=== PATIENT | female | born 1975 | race Caucasian/White ===

== ENCOUNTER 2018-04-24 09:05 | Outpatient (CLI) | payer MEDICAID, SELFPAY ==
[2018-04-24 10:49] LABS: Absolute Basophil Count 0.02 k/cumm (0.0-0.2); Absolute Eosinophil Count 0.06 k/cumm (0.0-0.7); Absolute Lymphocyte Count 1.36 k/cumm (1.2-3.4); Absolute Monocyte Count 0.25 k/cumm (0.11-0.7); Absolute Neutrophil Count 3.06 k/cumm (1.2-6.7); Basophils % 0.4; Eosinophils % 1.3; HCT 38.9 % (36.0-46.0); HGB 12.8 g/dL (12.0-15.5); Lymphocytes % 28.6; Mean Corp. HGB Concentration 32.9 g/dL (32.0-36.0); Mean Corpuscular Hemoglobin 33.4 pg (27.0-33.0); Mean Corpuscular Volume 101.6 fL (80-95); Mean Platelet Volume 9.8 fL (8.0-11.0); Monocytes % 5.3; Neutrophils % 64.4; Platelet Count 321 x1000/uL (130-400); RBC 3.83 m/cumm (4.00-5.20); RBC Distribution Width 13.1 % (11.7-14.6); White Blood Cell Count 4.75 k/cumm (4.4-10.8)
[2018-04-24 11:01] LABS: ALT 25 U/L (12-78); AST 23 U/L (15-37); Albumin 3.7 g/dL (3.4-5.0); Alkaline Phosphatase 106 U/L (46-116); Anion Gap 10.3 mmol/L (3-11); BUN 17 mg/dL (7-18); Bilirubin, Total 0.3 mg/dL (0.2-1.0); CO2 26.7 mmol/L (21.0-32.0); CREATININE 0.79 mg/dL (0.55-1.02); Chloride 103 mmol/L (98-107); Cholesterol 271 mg/dL (50-200); Glucose 80 mg/dL (70-100); HDL Cholesterol 56 mg/dL (40-60); LDL CHOLESTEROL 204 mg/dL (<100); Potassium 4.9 mmol/L (3.5-5.1); Sodium 140 mmol/L (136-145); Total Protein 7.3 g/dL (6.4-8.2); Triglyceride 52 mg/dL (30-150)
== END 2018-04-24 09:25 ==
PROVIDERS: PCP Nurse Practitioner Family; Visit Provider Nurse Practitioner Family
DX: E78.5 Hyperlipidemia, unspecified (principal)
CPT/HCPCS: 36415; 80053; 80061; 83721; 85025

== ENCOUNTER 2019-04-23 01:30 | Outpatient (CLI) | payer MEDICAID, SELFPAY ==
[2019-04-23 10:12] LABS: Hemoglobin A1C 5.3 % (4.5-6.2)
[2019-04-23 13:24] LABS: ALT 34 U/L (14-59); AST 20 U/L (15-37); Albumin 3.8 g/dL (3.4-5.0); Alkaline Phosphatase 96 U/L (46-116); Anion Gap 8.3 mmol/L (3-11); BUN 15 mg/dL (7-18); Bilirubin, Total 0.3 mg/dL (0.2-1.0); CO2 29.7 mmol/L (21.0-32.0); CREATININE 0.93 mg/dL (0.55-1.02); Calcium 9.1 mg/dL (8.5-10.1); Calculated LDL 182 mg/dL; Chloride 103 mmol/L (98-107); Cholesterol 245 mg/dL (50-200); Glucose 88 mg/dL (70-100); HDL Cholesterol 53 mg/dL (40-60); Potassium 5.2 mmol/L (3.5-5.1); Sodium 141 mmol/L (136-145); Total Protein 7.5 g/dL (6.4-8.2); Triglyceride 53 mg/dL (30-150)
== END 2019-04-23 01:50 ==
PROVIDERS: PCP Nurse Practitioner Family; Visit Provider Nurse Practitioner Family
DX: E78.5 Hyperlipidemia, unspecified (principal)
CPT/HCPCS: 36415; 80053; 80061; 83036

== ENCOUNTER 2020-04-21 17:36 | Outpatient (REF) | payer MEDICAID, SELFPAY ==
[2020-04-21 13:38] LABS: HCT 40.1 % (36.0-46.0); HGB 13.2 g/dL (11.2-15.7); MCH 32.9 pg (27.0-33.0); MCHC 32.9 % (32.0-36.0); MPV 10.2 fL (8.0-11.0); Platelet Count 311 10^3/uL (130-400); RBC 4.01 10^6/uL (3.93-5.22); RDW 12.5 % (11.7-14.6); RDW-SD 47.4 fL; WBC 5.64 10^3/uL (4.4-10.8)
[2020-04-21 14:20] LABS: ALT 27 U/L (14-59); AST 25 U/L (15-37); Albumin 3.6 g/dL (3.4-5.0); Alkaline Phosphatase 108 U/L (46-116); Anion Gap 4.7 mmol/L (3-11); BUN 11 mg/dL (7-18); Bilirubin, Total 0.4 mg/dL (0.2-1.0); CO2 29.3 mmol/L (21.0-32.0); CREATININE 0.89 mg/dL (0.55-1.02); Calcium 9.1 mg/dL (8.5-10.1); Calculated LDL 177 mg/dL (<100); Chloride 105 mmol/L (98-107); Cholesterol 240 mg/dL (<200); Folate 18.7 ng/mL (8.6-20.0); Glucose 100 mg/dL (74-106); HDL Cholesterol 47 mg/dL (40-60); Sodium 139 mmol/L (136-145); Total Protein 7.1 g/dL (6.4-8.2); Triglyceride 82 mg/dL (<150); Vitamin B12 196 pg/mL (193-986)
== END 2020-04-21 17:56 ==
LOC: LBN 17:36
PROVIDERS: PCP Nurse Practitioner Family; Visit Provider Nurse Practitioner Family
DX: E78.5 Hyperlipidemia, unspecified (principal); D75.89 Other specified diseases of blood and blood-forming organs
CPT/HCPCS: 80053; 80061; 85027; 82607; 82746

== ENCOUNTER 2020-05-24 00:59 | Outpatient (CLI) | payer MEDICAID, SELFPAY ==
--- NOTE | 2020-05-24 15:00 | DI.MAMMO_ITS ---
EXAM: MG MAMMO SCREENING CLINICAL HISTORY: screening,Z12.39 TECHNIQUE: Bilateral full field digital CC and MLO mammographic images were obtained with 3D tomosyn thesis and utilizing computer aided detection (CAD). COMPARISON: Available for comparison. FINDINGS: Masses/Architectural Distortion: None seen. Biopsy clips again seen in the left breast. Microcalcifications: No suspicious pleomorphic-type are seen. Skin Thickening/Nipple Retraction: None. IMPRESSION: 1. No significant interval change with no specific features of malignancy noted. 2. Unless there is more urgent need, screening mammography is recommended, as per [place] guidelines. BI-RADS Category 1 - Negative Breast Density - Category C - Heterogeneously dense The mammogram demonstrates the patient's breast tissue is dense. Dense breast tissue is very common a nd is not abnormal but dense breast tissue can make it harder to find cancer on a mammogram. Also, de nse breast tissue may increase their breast cancer risk. This information about the result of the [facility] mogram report was provided to the patient to raise their awareness. Use this report when you speak wi th the patient about their risks for breast cancer, which includes their family history. At that time , you may recommend for more screening tests (Ultrasound or MRI) as they might be useful based on the ir risk. A negative radiographic report should not delay biopsy if a dominant or clinically suspicious mass is present. Up to ten percent of cancers are not identified on mammography. A negative report may reinforce clinical impression. Adenosis and dense breasts may obscure an underlying neoplasm. False positive reports average 6 to 10%. Patient will receive a letter notifying them of these results.
== END 2020-05-24 01:19 ==
PROVIDERS: PCP Nurse Practitioner Family; Visit Provider Nurse Practitioner Family
DX: Z12.31 Encounter for screening mammogram for malignant neoplasm of breast (principal)
CPT/HCPCS: 77063; 77067

== ENCOUNTER 2021-06-01 02:26 | Outpatient (CLI) | payer MEDICAID, SELFPAY ==
[2021-06-01 09:31] LABS: Hemoglobin A1C 5.6 % (<5.7)
[2021-06-01 10:38] LABS: Albumin 3.5 g/dL (3.4-5.0); BUN 14 mg/dL (7-18); Bilirubin, Total 0.4 mg/dL (0.2-1.0); Glucose 79 mg/dL (74-106); Total Protein 7.2 g/dL (6.4-8.2)
[2021-06-01 10:39] LABS: ALT 33 U/L (14-59); AST 19 U/L (15-37); Alkaline Phosphatase 109 U/L (46-116); Chloride 104 mmol/L (98-107); Potassium 4.1 mmol/L (3.5-5.1); Sodium 141 mmol/L (136-145)
== END 2021-06-01 02:27 | disposition home or self-care (01) ==
LOC: LBO 02:26
PROVIDERS: PCP Nurse Practitioner Family; Visit Provider Nurse Practitioner Family
DX: Z79.899 Other long term (current) drug therapy (principal)
CPT/HCPCS: 36415; 80053; 83036

== ENCOUNTER 2021-06-08 19:07 | Outpatient (REF) | payer MEDICAID, SELFPAY ==
[2021-06-08 19:16] LABS: HCT 41.5 % (36.0-46.0); HGB 13.3 g/dL (11.2-15.7); MCH 32.3 pg (27.0-33.0); MCV 100.7 fL (80-95); MPV 9.9 fL (8.0-11.0); Platelet Count 360 10^3/uL (130-400); RBC 4.12 10^6/uL (3.93-5.22); RDW 12.8 % (11.7-14.6); RDW-SD 48.1 fL; WBC 7.42 10^3/uL (4.4-10.8)
[2021-06-08 20:09] LABS: Calculated LDL 150 mg/dL (<100); Cholesterol 216 mg/dL (<200); HDL Cholesterol 53 mg/dL (40-60); Triglyceride 66 mg/dL (<150); Vitamin B12 498 pg/mL (193-986)
== END 2021-06-08 19:08 | disposition home or self-care (01) ==
LOC: LBN 19:07
PROVIDERS: PCP Nurse Practitioner Family; Visit Provider Nurse Practitioner Family
DX: E78.5 Hyperlipidemia, unspecified (principal); D75.89 Other specified diseases of blood and blood-forming organs
CPT/HCPCS: 80061; 85027; 82607

== ENCOUNTER 2021-06-19 01:12 | Outpatient (CLI) | payer MEDICAID, SELFPAY ==
--- NOTE | 2021-06-19 06:45 | DI.MAMMO_ITS ---
Exam(s) MAMMO SCREENING EXAM: MAMMO SCREENING CLINICAL HISTORY: screening,z12.39. TECHNIQUE: Bilateral full field digital CC and MLO mammographic images were obtained with 3D tomosyn thesis and utilizing computer aided detection (CAD). COMPARISON: Prior baseline mammogram of May 2020. FINDINGS: The fibroglandular tissue pattern is again noted be moderately dense, this somewhat decreasing the se nsitivity of the mammogram for finding hidden underlying lesions. No new significant radiograph findings in the right breast. In the anterior aspect of the left breas t there are 2 separate biopsy marker clips again noted in the retroareolar region. No new significan t radiograph findings at this location or elsewhere in the breast. There is no significant architectural distortion nor skin thickening-retraction. IMPRESSION: Moderately dense fibroglandular tissue. Stable benign findings. No radiographic evidence of maligna ncy. BI-RADS Category 2 - Benign Findings Breast Density - Category C - Heterogeneously dense Breast density Category C or D implies that the patient has dense breast tissue. Dense breast tissue can make it harder to find cancer on a mammogram. Dense breast tissue is also associated with an incr eased risk of breast cancer. This information about the result of the mammogram report was provided to the patient to raise their awareness. Use this report when you speak with the patient about their risks for breast cancer, which includes their family history. At that time, you may recommend additional screening tests (Ultrasoun d or MRI) as these tests may add significant information. A negative radiographic report should not delay biopsy if a dominant or clinically suspicious mass is present. Up to ten percent of cancers are not identified on mammography. A negative report may reinforce clinical impression. Adenosis and dense breasts may obscure an underlying neoplasm. False positive reports average 6 to 10%. Patient will receive a letter notifying them of these results.
== END 2021-06-19 01:32 ==
PROVIDERS: PCP Nurse Practitioner Family; Visit Provider Nurse Practitioner Family
DX: Z12.31 Encounter for screening mammogram for malignant neoplasm of breast (principal); R92.8 Other abnormal and inconclusive findings on diagnostic imaging of breast
CPT/HCPCS: 77063; 77067

== ENCOUNTER 2022-06-11 11:31 | Outpatient (CLI) | payer MEDICAID, SELFPAY ==
--- NOTE | 2022-06-11 11:30 | RT.EKG_ITS ---
APPROVED REPORT Exam: Resting ECG Reason for Exam: tachycardia Patient Location: O HR:102 bpm ECG Measurements Heart Rate 102 AXIS DE 125 P 53 QRSd 81 QRS 35 QT 329 T 76 QTc 429 Conclusion Sinus tachycardia...rate> 99 Normal Electrocardiogram
== END 2022-06-11 11:32 | disposition home or self-care (01) ==
LOC: DI.CM 11:33
PROVIDERS: PCP Nurse Practitioner Family; Visit Provider Nurse Practitioner Family
DX: R00.0 Tachycardia, unspecified (principal)
CPT/HCPCS: 93010

== ENCOUNTER 2022-09-03 00:35 | Outpatient (CLI) | payer MEDICAID, SELFPAY ==
--- NOTE | 2022-09-03 08:15 | DI.MAMMO_ITS ---
Exam(s) MAMMO SCREENING EXAM: MAMMO SCREENING CLINICAL HISTORY: screening TECHNIQUE: Mammograms were interpreted according to the usual protocol including computer analysis w [employer] CAD system, tomosynthesis and C-view imaging. COMPARISON: 2019 and 2020 FINDINGS: The breasts are composed of heterogeneously dense fibroglandular densities, Breast Density category C . No suspicious masses or suspicious microcalcifications are seen. Biopsy marker clips again noted in the subareolar region of the left breast. No skin thickening or abnormal axillary lymph nodes are seen. There has been no significant change from prior exams. IMPRESSION: BI-RADS Category 1, Negative mammogram. Yearly screening mammography is recommended. Breast Density Category C, heterogeneously Dense. The mammogram demonstrates the patient's breast tissue is dense. Dense breast tissue is very common a nd is not abnormal but dense breast tissue can make it harder to find cancer on a mammogram. Also, de nse breast tissue may increase breast cancer risk. This information about the result of the mammogram report was provided to the patient to raise their awareness. Use this report when you speak with the patient about their risks for breast cancer, which includes their family history. At that time, you may recommend additional screening tests (Ultrasound or MRI) as they might be useful based on their r isk. A negative radiographic report should not delay biopsy if a dominant or clinically suspicious mass is present. Up to ten percent of cancers are not identified on mammography. A negative report may reinforce clinical impression. Adenosis and dense breasts may obscure an underlying neoplasm. False positive reports average 6 to 10%.
== END 2022-09-03 00:55 ==
LOC: DI 00:36
PROVIDERS: PCP Nurse Practitioner Family; Visit Provider Nurse Practitioner Family
DX: Z12.31 Encounter for screening mammogram for malignant neoplasm of breast (principal); R92.8 Other abnormal and inconclusive findings on diagnostic imaging of breast
CPT/HCPCS: 77063; 77067

== ENCOUNTER 2022-09-07 01:12 | Outpatient (CLI) | payer MEDICAID, SELFPAY ==
[2022-09-07 10:59] LABS: Abs Immature Grans 0.01 10^3/uL (0.0-0.06); Absolute Basophil Count 0.03 10^3/uL (0.0-0.2); Absolute Eosinophil Count 0.21 10^3/uL (0.0-0.7); Absolute Lymphocyte Count 2.11 10^3/uL (1.2-3.4); Absolute Monocyte Count 0.38 10^3/uL (0.1-0.8); Absolute Neutrophil Count 3.61 10^3/uL (1.2-6.7); Basophils % 0.5; Eosinophils % 3.3; HCT 38.4 % (36.0-46.0); HGB 12.7 g/dL (11.2-15.7); Immature Grans % 0.2; Lymphocytes % 33.2; MCH 32.1 pg (27.0-33.0); MCHC 33.1 % (32.0-36.0); MCV 97 fL (80-95); MPV 9.4 fL (8.0-11.0); Neutrophils % 56.8; Platelet Count 326 10^3/uL (130-400); RBC 3.96 10^6/uL (3.93-5.22); RDW 12.6 % (11.7-14.6); RDW-SD 45.1 fL; WBC 6.35 10^3/uL (4.4-10.8)
[2022-09-07 11:27] LABS: Hemoglobin A1C 5.5 % (<5.7)
[2022-09-07 11:36] LABS: ALT 45 U/L (14-59); AST 26 U/L (15-37); Albumin 3.9 g/dL (3.4-5.0); Alkaline Phosphatase 156 U/L (46-116); Anion Gap 7.4 mmol/L (3-11); BUN 12 mg/dL (7-18); Bilirubin, Total 0.3 mg/dL (0.2-1.0); CO2 30.6 mmol/L (21.0-32.0); CREATININE 0.9 mg/dL (0.55-1.02); Calcium 9.5 mg/dL (8.5-10.1); Calculated LDL 121 mg/dL (<100); Chloride 103 mmol/L (98-107); Cholesterol 197 mg/dL (<200); Estimated GFR 79.85 (mL/min/1.73m2); Glucose 87 mg/dL (74-106); HDL Cholesterol 64 mg/dL (40-60); Potassium 3.9 mmol/L (3.5-5.1); Sodium 141 mmol/L (136-145); Total Protein 7.6 g/dL (6.4-8.2); Triglyceride 60 mg/dL (<150)
== END 2022-09-07 01:13 | disposition home or self-care (01) ==
LOC: LBO 01:12
PROVIDERS: PCP Nurse Practitioner Family; Visit Provider Nurse Practitioner Family
DX: F31.9 Bipolar disorder, unspecified (principal); I10 Essential (primary) hypertension
CPT/HCPCS: 36415; 80053; 80061; 83036; 85025

== ENCOUNTER → 2023-09-05 03:32 | Outpatient (CLI) | payer MEDICAID, SELFPAY ==
--- NOTE | 2023-09-05 12:02 | DI.MAMMO_ITS ---
Exam(s) MAMMO SCREENING EXAM: MAMMO SCREENING CLINICAL HISTORY: screening,z12.39 TECHNIQUE: Mammograms were interpreted according to the usual protocol including computer analysis w [employer] CAD system, tomosynthesis and C-view imaging. COMPARISON: 2019 through 2022 FINDINGS: The breasts are composed of heterogeneously dense fibroglandular densities, Breast Density category C . No suspicious masses or suspicious microcalcifications are seen. Biopsy marker clips noted in subare olar region of left breast. No skin thickening or abnormal axillary lymph nodes are seen. There has been no significant change from prior exams. IMPRESSION: BI-RADS Category 1, Negative mammogram. Yearly screening mammography is recommended. Breast Density Category C, heterogeneously Dense. The mammogram demonstrates the patient's breast tissue is dense. Dense breast tissue is very common a nd is not abnormal but dense breast tissue can make it harder to find cancer on a mammogram. Also, de nse breast tissue may increase breast cancer risk. This information about the result of the mammogram report was provided to the patient to raise their awareness. Use this report when you speak with the patient about their risks for breast cancer, which includes their family history. At that time, you may recommend additional screening tests (Ultrasound or MRI) as they might be useful based on their r isk. A negative radiographic report should not delay biopsy if a dominant or clinically suspicious mass is present. Up to ten percent of cancers are not identified on mammography. A negative report may reinforce clinical impression. Adenosis and dense breasts may obscure an underlying neoplasm. False positive reports average 6 to 10%.
== END ==
PROVIDERS: PCP Nurse Practitioner Family; Visit Provider Nurse Practitioner Family
DX: Z12.31 Encounter for screening mammogram for malignant neoplasm of breast (principal)
CPT/HCPCS: 77063; 77067

== ENCOUNTER 2023-12-11 13:38 | Outpatient (CLI) | payer MEDICAID, SELFPAY ==
[2023-12-11 13:18] LABS: Abs Immature Grans 0.02 10^3/uL (0.0-0.06); Absolute Basophil Count 0.03 10^3/uL (0.0-0.2); Absolute Lymphocyte Count 1.55 10^3/uL (1.2-3.4); Absolute Neutrophil Count 3.97 10^3/uL (1.2-6.7); Basophils % 0.5 %; Eosinophils % 1.7 %; HCT 27.7 % (36.0-46.0); HGB 8.6 g/dL (11.2-15.7); Immature Grans % 0.3 %; MCH 28.3 pg (27.0-33.0); MCV 91 fL (80-95); MPV 9.9 fL (8.0-11.0); Neutrophils % 66.5 %; Platelet Count 361 10^3/uL (130-400); RBC 3.04 10^6/uL (3.93-5.22); RDW 14.7 % (11.7-14.6); RDW-SD 49.3 fL; WBC 5.97 10^3/uL (4.4-10.8)
[2023-12-11 13:57] LABS: FREE T4 0.96 ng/dL (0.76-1.46); TSH 0.76 uIU/Ml (0.36-3.74)
[2023-12-11 14:07] LABS: ALT 33 U/L (14-59); AST 15 U/L (15-37); Albumin 3.8 g/dL (3.4-5.0); Alkaline Phosphatase 152 U/L (46-116); Anion Gap 7.6 mmol/L (3-11); BUN 23 mg/dL (7-18); Bilirubin, Total 0.3 mg/dL (0.2-1.0); CO2 22.4 mmol/L (21.0-32.0); Calcium 8.9 mg/dL (8.5-10.1); Calculated LDL 116 mg/dL (<100); Chloride 106 mmol/L (98-107); Cholesterol 175 mg/dL (<200); Estimated GFR 69.93 (mL/min/1.73m2); Glucose 144 mg/dL (74-106); HDL Cholesterol 51 mg/dL (40-60); Sodium 136 mmol/L (136-145); Total Protein 7.5 g/dL (6.4-8.2); Triglyceride 42 mg/dL (<150)
[2023-12-11 14:26] LABS: Hemoglobin A1C 6.1 % (<5.7)
[2023-12-11 15:51] LABS: Vitamin D 25 Total 27.8 ng/mL (30-100)
[2023-12-11 22:13] LABS: Ferritin 8 ng/mL (8-252); Vitamin B12 894 pg/mL (193-986)
[2023-12-11 22:46] LABS: T3, Total 138 ng/dL (97-169)
[2023-12-11 22:53] LABS: Lab Add On Test DONE
[2023-12-12 09:35] LABS: Hepatitis C Ab w Rflx HCV PCR Negative (Negative)
== END 2023-12-11 13:39 | disposition home or self-care (01) ==
LOC: LBO 13:39
PROVIDERS: Nurse Practitioner Psychiatric/Mental Health; PCP Nurse Practitioner Family; Visit Provider Nurse Practitioner Family
DX: Z11.59 Encounter for screening for other viral diseases (principal); I10 Essential (primary) hypertension; E78.5 Hyperlipidemia, unspecified; D64.9 Anemia, unspecified
CPT/HCPCS: 36415; 80053; 80061; 82306; 86803; 82607; 82728; 82746; 83036; 84439; 84443; 84480; 85025

== ENCOUNTER → 2024-01-02 00:04 | Outpatient (CLI) | payer MEDICAID, SELFPAY ==
--- NOTE | 2024-01-02 11:00 | DI.US_ITS ---
APPROVED REPORT EXAM: Comprehensive 2D, Doppler, and color-flow Echocardiogram Patient Location: [facility]-Patient [employer] Supervisor: Mahogany Vincent RDCS (AE) Indications: Loud systolic murmur, HTN Other Information Study Quality: Adequate Conclusion Normal left ventricular wall thickness and chamber size. Ejection fraction is 65%. Wall motion is n ormal Normal right ventricular size and function Both atria are normal in size There is no structural or hemodynamically significant valvular disease Estimated right ventricular systolic pressure is 30 mmHg Wall motion Left Ventricle The left ventricle is normal size. The left ventricular systolic function is normal. The left ventric ular ejection fraction is within the normal range. There is normal left ventricular wall thickness. T here is normal LV segmental wall motion. There is no ventricular septal defect visualized. LVEF is 65 %. Right Ventricle The right ventricle is normal size. The right ventricular systolic function is normal. Atria The left atrium size is normal. The right atrium size is normal. The interatrial septum is intact wit h no evidence for an atrial septal defect. Aortic Valve The aortic valve is normal in structure. Aortic valve is trileaflet. There is no aortic valvular sten osis. No aortic regurgitation is present. Mitral Valve The mitral valve is normal in structure. No evidence of mitral valve stenosis. Trace mitral regurgita tion. Tricuspid Valve The tricuspid valve is normal in structure. There is no tricuspid valve stenosis. Trace tricuspid reg urgitation. The RVSP is 30.1_ mmHg. Pulmonic Valve The pulmonary valve is normal in structure. There is no pulmonic valvular stenosis. Trace pulmonic re gurgitation. Great Vessels The aortic root is normal in size. The ascending aorta is normal in size. Aortic arch is normal in ca liber. IVC is normal in size and collapses >50% with inspiration. Pericardium There is no pericardial effusion. 2D Dimensions IVSD d PLAX 1.00 cm F: 0.6-1.0 Ao Root d 2.50 cm F: 2.7 - 3.3 LVPW d PLAX 1.02 cm F: 0.6 - 1.0 Ao Asc Diam d 3.01 cm F: 2.3 - 3.1 LVID d PLAX 4.68 cm F: 3.8 - 5.2 LVDs 3.26 cm F: 2.2 - 3.5 LV EF Teichholz 57.7 % FS 30.33 % LV EDV (Teich) 101.5 mL LV ESV (Teich) 42.9 mL M-Mode TAPSE 2.35 cm (M/F) >1.7 Auto EF LV EDV A4C 95.3 mL LV EDV A2C 105.1 mL LV EDV BP 98.4 mL LV ESV A4C 40.7 mL LV ESV A2C 44.2 mL LV ESV BP 42.7 mL LVEF(%) A4C 57.3 % LVEF(%) A2C 58.0 % LVEF(%) BP 56.7 % LV SV A4C 54.6 ml LV SV A2C 60.9 ml LV SV BP 55.8 ml LV CO A4C 4.9 L/min LV CO A2C 5.4 L/min LV CO BP 5.1 L/min HR A4C 88.89 BPM HR A2C 88.24 BPM LV EDV Index (BP) LA Volume LA Length A4C 4.9 cm LA Length A2C 4.8 cm LA Area A4C s 15.59 cm2 LA Area A2C s 16.15 cm2 LA Vol A4C A-L 42.20 mL LA Vol A2C A-L 46.50 mL LA Vol Biplane A-L 44.9 mL LA Vol/BSA A4C A-L LA Vol/BSA A2C A-L LA Vol/BSA BP A-L 22.6 mL/m2 LA Vol A4C MOD 38.3 mL LA Vol A2C MOD 44.8 mL LA Vol BP MOD 41.7 mL RA Volume RA Area A4C 11.5 cm2 RA ESV A4C (A-L) 30.6mL RA Vol/BSA A4C A-L RA Length A4C 3.7 cm RA ESV A4C (MOD) 28.7mL LV Diastology MV E' medial 0.092 (>0.07 m/s) MV E Vmax 1.04 (0.4-1.3 m/s) MV E/E' MED 11.27 (<14) MV A Vmax 0.90 (0.4-1.3 m/s) MV E' lateral 0.139 (>0.1 m/s) E/A Ratio 1.2 MV E/E' LAT 7.50 (<14) MV E' Average 0.116 m/s MV E/E'(average) 9.01 Aortic Valve AoV Vmax 2.50 m/s LVOT Vmax 1.66 m/s AoV Peak Grad 24.9 mmHg LVOT Peak Grad 11.1 mmHg AoV Area (Vmax) 1.86 cm2 LVOT VTI 0.291 m AoV VTI 0.449 m LVOT Mean Grad 6.0 mmHg AoV Mean Baljit. 1.60 m/s LVOT SV 81.09 mL AoV Mean Grad 12.1 mmHg LVOT Diam s 1.85 cm AoV Area (VTI) 1.80 cm2 Velocity Ratio 0.66 Mitral Valve MV DT 171 (160-240 msec) MV Vmax TIPS 1.10 m/s MV Mean Grad 2.4 (<2mmHg) MV VTI 0.332 m Pulmonary Valve PV Vmax 1.68 (0.5-1.5 m/s) RVOT Vmax 1.22 m/s PV Peak Grad 11.3 mmHg RVOT Peak Gr. 6.0 mmHg PV Mean Baljit 1.16 m/s RVOT VTI 0.257 m PV Mean Grad 6.1 mmHg RVOT Mean Gr. 3.6 mmHg Tricuspid Valve RA Pressure 3.00 mmHg TR Vmax 2.60 m/s TV S' 0.15 m/s TR Peak Grad 27.0 mmHg RVSP (TR) 30.1 mmHg
== END ==
PROVIDERS: PCP Nurse Practitioner Family; Visit Provider Nurse Practitioner Family
DX: I10 Essential (primary) hypertension (principal); R01.1 Cardiac murmur, unspecified
CPT/HCPCS: 93306

== ENCOUNTER 2024-02-13 12:26 | Outpatient (CLI) | payer MEDICAID, SELFPAY ==
[2024-02-13 11:35] LABS: Abs Immature Grans 0.02 10^3/uL (0.0-0.06); Absolute Basophil Count 0.03 10^3/uL (0.0-0.2); Absolute Lymphocyte Count 1.53 10^3/uL (1.2-3.4); Absolute Monocyte Count 0.39 10^3/uL (0.1-0.8); Absolute Neutrophil Count 5.54 10^3/uL (1.2-6.7); Basophils % 0.4 %; Eosinophils % 2.6 %; HCT 35.3 % (36.0-46.0); HGB 11.3 g/dL (11.2-15.7); Immature Grans % 0.3 %; Lymphocytes % 19.8 %; MCH 29.6 pg (27.0-33.0); MCV 92 fL (80-95); MPV 9.5 fL (8.0-11.0); Monocytes % 5.1 %; Neutrophils % 71.8 %; Platelet Count 334 10^3/uL (130-400); RBC 3.82 10^6/uL (3.93-5.22); RDW 18.9 % (11.7-14.6); RDW-SD 63.7 fL; Reticulocyte 1.4 % (0.5-2.4); WBC 7.71 10^3/uL (4.4-10.8)
[2024-02-13 12:43] LABS: Iron 82 ug/dL (50-170); Total Iron Binding Capacity 442 ug/dL (250-450); Transferrin Sat 19 % (15-50)
[2024-02-13 13:07] LABS: ALT 45 U/L (14-59); AST 26 U/L (15-37); Albumin 4.1 g/dL (3.4-5.0); Alkaline Phosphatase 162 U/L (46-116); Anion Gap 10.5 mmol/L (3-11); BUN 15 mg/dL (7-18); CO2 25.5 mmol/L (21.0-32.0); Calcium 9.5 mg/dL (8.5-10.1); Chloride 104 mmol/L (98-107); Estimated GFR 69.93 (mL/min/1.73m2); Ferritin 17 ng/mL (8-252); Glucose 96 mg/dL (74-106); Magnesium 2.1 mg/dL (1.8-2.4); Potassium 4.3 mmol/L (3.5-5.1); Sodium 140 mmol/L (136-145); TSH (W/Ref FT4) 1.37 uIU/mL (0.36-3.74); Total Protein 7.8 g/dL (6.4-8.2); Vitamin B12 983 pg/mL (193-986)
[2024-02-13 13:21] LABS: C-Reactive Protein < 0.50 mg/dL (<or=0.5); GGT 15 U/L (5-55); LDH 214 U/L (81-234)
[2024-02-14 11:02] LABS: Haptoglobin 282 mg/dL (32-197)
== END 2024-02-13 12:27 | disposition home or self-care (01) ==
LOC: LBO 12:26
PROVIDERS: PCP Nurse Practitioner Family; Visit Provider Surgery
DX: I10 Essential (primary) hypertension (principal); E78.49 Other hyperlipidemia; E55.9 Vitamin D deficiency, unspecified; D50.9 Iron deficiency anemia, unspecified; F81.9 Developmental disorder of scholastic skills, unspecified; L20.89 Other atopic dermatitis; F31.60 Bipolar disorder, current episode mixed, unspecified; F43.10 Post-traumatic stress disorder, unspecified
CPT/HCPCS: 36415; 80053; 82607; 82728; 82746; 82977; 83010; 83540; 83550; 83615; 83735; 84443; 85025; 85045; 86140

== ENCOUNTER 2024-03-27 06:23 | Day surgery (SDC) | payer MEDICAID, SELFPAY ==
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
--- NOTE | 2024-03-26 20:18 | PDOC.DSDIS_ITS ---
Date of service: 03/27/24 Time of Service: 11:04 Discharge Plan Disposition Patient Disposition: Home Condition: Good Discharge Details Reason For Visit: egd and colo Attending Provider: Jaylene Bray Primary Care Provider: Vlevet Edwards Home Meds and New Rx's Prescriptions: New pantoprazole [Protonix] 40 mg tablet,delayed release (DR/EC) 40 mg PO DAILY Qty: 90 6RF Continued norethindrone (contraceptive) 0.35 mg tablet 0.35 mg PO DAILY Qty: 84 3RF Rx Instructions: Take 1 tablet continuously methylphenidate HCl [Concerta] 36 mg tablet extended release 24hr 36 mg PO DAILY metformin 500 mg tablet 500 mg PO DAILY aripiprazole 15 mg tablet 15 mg PO DAILY lorazepam 0.5 mg tablet 0.5 mg PO DAILY Patient Comments: Prescribed by psychiatric provider citalopram 10 mg tablet 10 mg PO DAILY Patient Comments: Prescribed by psychiatric provider valacyclovir 1 gram tablet 2,000 mg PO BID PRN (Reason: cold sores) Qty: 30 0RF Rx Instructions: Take 2 tablets twice a day for 1 day at first onset of symptoms triamcinolone acetonide 0.1 % cream 1 applic TP BID PRN (Reason: rash) Qty: 80 4RF Rx Instructions: Apply small amount to right leg rash twice a day till it resolves, 2-4wks cyanocobalamin (vitamin B-12) 1,000 mcg capsule 1,000 mcg PO DAILY Qty: 90 4RF rosuvastatin 20 mg tablet 20 mg PO DAILY Qty: 90 3RF Rx Instructions: Take 1 tablet daily amlodipine 10 mg tablet 10 mg PO DAILY Qty: 90 3RF losartan 100 mg tablet 100 mg PO DAILY Qty: 90 3RF cholecalciferol (vitamin D3) 50 mcg (2,000 unit) capsule 2,000 unit PO DAILY Qty: 90 3RF Rx Instructions: Take 1 daily after the 8 weeks of the 50,000unit dose ferrous sulfate 325 mg (65 mg iron) tablet 325 mg PO DAILY Qty: 90 3RF omega-3 acid ethyl esters [Lovaza] 1 gram capsule 4 cap PO DAILY Qty: 360 3RF Discontinued polyethylene glycol 3350 17 gram/dose powder 238 g PO ONCE Qty: 238 0RF Rx Instructions: take per colonoscopy instructions bisacodyl [Dulcolax (bisacodyl)] 5 mg tablet,delayed release (DR/EC) 5 mg PO ONCE Qty: 4 0RF Rx Instructions: take per colonoscopy instructions Discharge Instructions Instructions: Aspiration Pneumonia (DC) Additional Instructions: DSU Colonoscopy Post- Op Instructions Instructions for Everyone who is given Anesthesia: For your safety, please do the following for the next twenty-four (24) hours: *Do Not operate a motor vehicle (car, truck, motorcycle, etc.) *Do Not drink alcoholic beverages or use any recreational drugs for the first 24 hours or while taking pain medications. The medications in your body may have a reaction that can be dangerous. *Do Not make any important decisions or sign any important papers. Findings: large hiatal hernia and signs of chronic reflux Follow up: 1 months time f/u Dr. Bray in 1 months time April 27 @ 10:30am 1. No lifting over 20 pounds or strenuous activity for the first 24 hours after your procedure. After 24 hours there are no restrictions on your activity but you may feel fatigued for a few days. 2. After you arrive home you may have a light meal and return to your normal diet as you can tolerate it without feeling sick to your stomach. 3. You may have a bloated, gaseous feeling in your belly (abdomen) after a colonoscopy. Passing gas and belching will help. Walking or lying down on your left side with your knees flexed may relieve the discomfort. Call the office at [phone] (Office) or [phone] (Hospital) right away if you notice any of the following: a.Vomiting of blood or ?coffee ground stools?. b.Rectal bleeding 1Tbsp, blood clots or continuous bleeding. c.Severe belly (abdominal) pain. d.A hard distended belly (abdomen) and an inability to pass gas. 4. Please don?t expect to have a normal BM (bowel movement) for 2-3 days after your procedure. 5. If there are questions regarding the findings of your procedure, please contact your doctor 6. If you are unable to contact your doctor with a problem, contact the hospital at [phone]. 7. Continue all your regular medications unless directed otherwise. I understand the above instructions and have no questions. Signature of Patient or Adult Escort Name of Responsible Adult Escort Signature of Nurse Date/Time Stand Alone Forms: Anesthesia Discharge Inst., Colonoscopy Post Instructions, Press Ganey (DSU) Activity:: see above Diet:: see above Discharge Orders Discharge Orders: Discharge Order (Routine); Ordered 03/27/24 Ordered By: Jaylene Bray DS: Diagnosis Discharge Diagnosis (1) Bipolar disorder: Status: Chronic (2) PTSD (post-traumatic stress disorder): Status: Chronic (3) Hypertension: Status: Chronic (4) Hyperlipidemia: Status: Chronic (5) Vitamin D insufficiency: Status: Chronic (6) Oral contraceptive pill surveillance: Status: Chronic (7) Iron deficiency anemia: Status: Acute (8) Herpes labialis: Status: Chronic (9) Cognitive developmental delay: Status: Chronic (10) Hiatal hernia with GERD: Status: Acute (11) Esophagitis: Status: Acute
--- NOTE | 2024-03-26 20:48 | W.COLOREPORT ---
Date of service: 03/27/24 Time of Service: 08:40 Colonoscopy Report Date of procedure: 03/27/24 Pre-op diagnosis general: CRC screen/anemai Post-op diagnosis procedure note: same Surgeon: Jaylene Bray Anesthesia Type: General LMA/ETT (The patient had severe laryngeal spasm and needed to be intubated) Estimated blood loss (mL): 0 Pathology: none sent Complications: None Disposition: PACU Prep: Miralax/Dulcolax Procedure Start Time: 08:00 Procedure Description: After informed consent was obtained, explaining risks of the procedure, including but not limits to: bleeding, infections, complications of anesthesia, perforations (which may require antibiotics and /or surgery and stay in the hospital), and abdominal pain/cramping. The patient was taken to the procedure room and placed in a left decubitous position. Monitors were applied and a time out was done. The patients name, date of , procedure, allergies to medications and metal in their body was reviewed. a rectal exam was done. External exam was normal. Internal exam revealed a normal sphincter tone and no palpable masses. The previously lubricated Olympus scope was then introduced (see RN notes for scope number) and retrofelexed. No internal hemorrhoids were identified. The scope was then advanced to the cecum without difficulty. The TI and appendiceal orifice were identified. The scope was then slowly retracted over 8 minutes back into the rectum. Polyps: None. Diverticula: None. The mucosa is pink and healthy w/ a normal vascular pattern. The scope was removed, and the patient was woken up and taken back to Same day surgery in stable condition. The patient tolerated the procedure well and there were no immediate complications. Follow up: The patient should follow up in 10 years, unless they develop changes in bowel habits or other new gastrointestinal complaints. Fruitland Bowel Prep Fruitland Bowel Prep Right Colon: 3 Left Colon: 3 Transverse Colon: 3 Total Score: 9
--- NOTE | 2024-03-26 20:49 | W.PM.ENDDOP ---
Date of service: 03/27/24 Time of Service: 08:43 Endoscopy Report DATE OF PROCEDURE: 03/27/24 PRE-OP DIAGNOSIS: anemia/gerd POST-OP DIAGNOSIS: other (5 to 6 cm hiatal hernia and esophagitis) SURGEON: Jaylene Bray ANESTHESIA TYPE: General:No Airway (Patient did have a significant airway spasm during the procedure and we did have to convert to general/give paralytics, in order to break the spasm. Further scopes should be done as general) and General LMA/ETT ESTIMATED BLOOD LOSS: 2 PATHOLOGY: other COMPLICATIONS: None DISPOSITION: same day PREP: Miralax/Dulcolax PROCEDURE DESCRIPTION: Informed consent was obtained from the pt; explaining the benefits and Risks: bleeding, infections, perforations {which could require surgery or antibiotics and prolonged hospital stay}, or ostomy, and complications of anaesthesia, carito aspiration). The patient was take to the procedure room and placed in a supine position. Monitors were applied and a time out was done. The patients name, date of , procedure type, allergies to medications and metal in their body was reviewed. A bite block was placed and the patient was sedated. Once sedated and comfortable an Olympus gastroscope (see RN notes for scope #) was advanced through the oropharynx which was grossly normal, and passed into the esophagus. The proximal and mid-esophagus were normal. The distal esophagus does not show any: dilation/strictures/varices/erosions or ulcers/bleeding noted. There is moderate esophagitis noted. There is an nodule at the 9 o'clock position that is quite friable and bleeds readily. Multiple biopsies are taken of this. The scope was advanced into the stomach and through the pylorus into the proximal jejunum. A bx is taken for celiac Dx . The duodenum was noted to be normal. Biopsies were done of the duodenal bulb.. The scope was retracted back into the stomach and biopsies were taken of the antrum. There were no gastritis/gastropathy/ ulcers/masses noted. The scope was retroflexed. The cardia and fundus were noted to be normal. There 5 to 6 cm sliding-type a hiatal hernia noted. The scope was retracted back into the esophagus and biopsies were done of the GE junction (in all 4 quadrants) and distal esophagus (2cm above the GE junction) to rule out Yang's. All specimens are retrieved and no bleeding was noted. The Z line was irregular. The GE junction was at 35 cm. The scope was removed and the patient was woken up and taken back to [facility] in stable condition. *Further endoscopy should be done as general due to airway spasm
[2024-03-27] VITALS (19 sets, daily range): BP systolic 99–139; BP diastolic 49–79; PULSE 65–94; RESP 13–26; TEMP 36–36.7; O2SAT 93–99; BMI 35.8
--- OUTSIDE RECORDS SUMMARY | 2024-03-27 06:24 | XMS_ITS | Encounter Summary ---
Author Organization [facility] Address [address] [place] [address] Care Team Providers Care Metal Ceiling Builder Name Role Phone Iesha Malave MD Primary Care Provider [phone] Encounter Details Date Type Department Care Team (Late st Contact Info) Description 12/11/2023 Lab Requisition [facility] Pathology & Laboratory Medicine - [address] [id number] Outr Resulting Lab, Provider Social History Tobacco Use Types Packs/Day Years Used Date Smoking Tobacco: Never Assessed Interpersonal Safety Answer Date Record ed Physically Hurt Never 02/21/2020 Verbally Threaten Not on file 02/21/2020 Sex and Gender Information Value Date Recorded Sex Assigned at Not on file Gender Identity Not on file Sexual Orientation Not on file documented as of this encounter Plan of Treatment Not on file documented as of this encounter Procedures Procedure Name Priority Date/Time Associated Diagnosis Comments T3, TOTAL Routine 12/11/2023 11:55 EDT documented in this encounter Results * T3, TOTAL (12/11/2023 11:55 EDT) T3, Total 138 97 - 169 ng/dL 12/11/2023 22:41 EDT [facility] Blood VENOUS BLOOD / Unknown 12/11/2023 11:55 EDT 12/11/2023 21:50 EDT Provider Outr Resulting Lab CHEMISTRY & BLOOD GAS ORDERABLES [facility] [address] [place] [id number] documented in this encounter Visit Diagnoses Not on filedocumented in this encounter Care Teams Metal Ceiling Builder Relationship Specialty Start Date End Date Iesha Malave MD [address] [place], [place] [address] PCP - General 05/21/13 documented as of this encounter
--- OUTSIDE RECORDS SUMMARY | 2024-03-27 06:24 | XMS_ITS | Clinical Summary ---
Author Organization [facility] [place] [address] Care Team Providers Care Pot Feeder Name Role Phone Iesah Malave MD Primary Care Provider [phone] Allergies No known active allergies Medications Medication Sig Dispensed Refills Start Date End Date Status QUEtiapine (SEROQUEL) 100 mg tablet 07/01/2006 Active lithium 300 mg tablet 07/01/2006 Act skylar atorvastatin (LIPITOR) 40 mg tablet 40MG, PO, Once daily 07/01/2006 Active lamoTRIgine (LAMICTAL) 100 mg tablet 07/01/2006 Active aripiprazole (ABILIFY) 10 mg tablet 07/01/2006 Active LORazepam (ATIVAN) 0.5 mg tablet 07/01/2006 Active multivitamin capsule 07/01/2006 Acti ve Active Problems Problem Noted Date Diagnosed Date Eczematous dermatitis 11/20/2013 Social History Tobacco Use Types Packs/Day Years Used Date Smoking Tobacco: Never Assessed Sex and Gender Information Value Date Recorded Sex Assigned at Not on file Gender Identity Not on file Sexual Orientation Not on file Plan of Treatment Health Maintenance Due Date Last Done Comments CT Colonography 1976 Colonoscopy 1976 Colorectal Cancer Screening 1976 FIT DNA 1976 FIT 1976 Sigmoidoscopy (10 year) with FIT yearly 1976 Sigmoidoscopy 1976 HIV screen 1994 Hepatitis C Screening 1994 Hepatitis B vaccine (0-59 yrs) (1) 1995 Tdap adult 1995 Tetanus vaccine 1995 HPV test 2006 PAP Smear 2006 Breast Cancer Share Decision Needed 2016 Breast Cancer screening 2016 Covid-19 Vaccine ( - season) 2023 Influenza (Flu) vaccine (1 o f 1 - Influenza standard series) 03/22/2024 Care Teams Pot Feeder Relationship Specialty Start Date End Date Iesha Malave MD [address] [place] [address] PCP - General 06/13/10
--- OUTSIDE RECORDS SUMMARY | 2024-03-27 06:24 | XMS_ITS | Encounter Summary ---
[place] [address] Care Team Providers Care High Speed Warper Tender Name Role Phone Iesha Malave MD Primary Care Provider [phone] Encounter Details Date Type Department Care Team (Late st Contact Info) Description 02/13/2007 [place] [address] Jose Elias Godinez MD DIAGNOSTIC RADIOLOGY Social History Tobacco Use Types Packs/Day Years Used Date Smoking Tobacco: Never Assessed Sex and Gender Information Value Date Recorded Sex Assigned at Not on file Gender Identity Not on file Sexual Orientation Not on file documented as of this encounter Plan of Treatment Not on file documented as of this encounter Procedures Procedure Name Priority Date/Time Associated Diagnosis Comments SURGICAL PATHOLOGY REPORT Routine 02/13/2007 4:04 PM EDT documented in this encounter Results * Surgical Pathology Report (02/13/2007 4:04 PM EDT) Surgical Pathology Report [id number] ? Location: [facility] The signing pathologist has (i) examined the relevant preparation(s) for the specimen(s) and (ii) rendered or confirmed the diagnosis(es). . ?Pathology Surgical Pathology Final Report Clinical Information Specimen Submitted: A - Left breast: usbx, 12 ga VAD cores; superior margin B - Left breast: usbx, 12 ga VAD cores; inferior margin Clinical History: palpable lump left breast 1 cm from nipple hypoechoic on US Macrolobulated mass extends radically from nipple. cores taken from superior + inferior margins Clinical Diagnosis: Fibroadenoma Papilloma DCIS Report to: Jarrod Julian MD [facility] [address] [place] [address] Gross Description A - Labeled/Fixativ e: Left breast superior margin, formalin. Qty/Size/Weight : ?Four fragmented needle core biopsies, ranging from ?1.0 cm to 2.0 cm. ??Cylindrical cores of sánchez-white ?and yellow-white, fatty and fibrofatty tissue. Sections/Proces sing: ??(T1) B - Labeled/Fixativ e: Left breast inferior margin, formalin. Qty/Size/Weight : ?Three needle core biopsies, 1.7 x 0.3 x 0.2 cm. ?Cylindrical cores of sánchez-white and yellow-white, ?fatty and fibrofatty tissue. Sections/Proces sing: ??(T1) ??aje/EJR Microscopic Description Slides reviewed, microscopic description not recorded. Diagnosis A - Needle biopsies: ??Left breast (superior margin) Diagnosis: ?Fibroadenoma Microcalcificat ions: ??N/A B - Needle biopsies: ??Left breast (inferior margin) Diagnosis: ?Fibroadenoma Microcalcificat ions: ??N/A . Diagnosis CR-0 02/14/07 JOSE 02/14/07 Verified by: ? Nona Dumont MD ?Pathologist ?(Electronic Signature) The attending pathologist whose signature appears on this report has reviewed all diagnostic slides and has edited the gross and/or microscopic portion of the report in rendering the final pathologic diagnosis. JUAN PABLO SAUNDERS 02/13/2007 4:04 PM EDT Jose Elias Godinez MD PATHOLOGY/CYTOLOGY O RDERABLES JUAN PABLO SAUNDERS documented in this encounter Visit Diagnoses Not on filedocumented in this encounter Care Teams High Speed Warper Tender Relationship Specialty Start Date End Date Iesha Malave MD [address] [place] [address] PCP - General 06/13/10 documented as of this encounter
--- OUTSIDE RECORDS SUMMARY | 2024-03-27 06:24 | XMS_ITS | Encounter Summary ---
Author Organization [facility] Address [address] [place] [address] Care Team Providers Care Motorcycle Deliverer Name Role Phone Unknown, Provider Primary Care Provider [phone] Encounter Details Date Type Department Care Team (Latest Contact Info) Description 05/19/2013 14:04 EDT - 05/19/2013 23:59 EDT Hospital Encounter [address] [address] Unknown, Provider, Discharge Disposition: Home or Self Care Social History Tobacco Use Types Packs/Day Years Used Date Smoking Tobacco: Never Assessed Sex and Gender Information Value Date Recorded Sex Assigned at Not on file Gender Identity Not on file Sexual Orientation Not on file documented as of this encounter Discharge Disposition Disposition Code Departure Means Destination Home or Self [facility] documented in this encounter Plan of Treatment Not on file documented as of this encounter Visit Diagnoses Not on filedocumented in this encounter Care Teams Motorcycle Deliverer Relationship Specialty Start Date End Date Unknown, Provider, PCP - General 05/19/13 05/20/13 documented as of this encounter
--- OUTSIDE RECORDS SUMMARY | 2024-03-27 06:24 | XMS_ITS | Encounter Summary ---
[place] [address] Care Team Providers Care Bread Jockey Name Role Phone Iesha Malave MD Primary Care Provider Reason for Visit * Reason Comments Establish Care Encounter Details Date Type Department Care Team (Late st Contact Info) Description 11/20/2013 2:15 PM EDT Office Visit Dermatology at [address] [address] Felix Tierney MD [address] [facility] DERMATOLOGY [place], [place] [id number] Eczematous dermatitis (Primary Dx) Social History Tobacco Use Types Packs/Day Years Used Date Smoking Tobacco: Never Assessed Sex and Gender Information Value Date Recorded Sex Assigned at Not on file Gender Identity Not on file Sexual Orientation Not on file documented as of this encounter Progress Notes * Felix Tierney MD - 11/20/2013 2:50 PM EDT Problem: Dermatitis. Shana Turpin is a 38-year-old woman who is referred today by Dr. Malave for evaluation and treatment of recurrent dermatitis on the right anterior vitale. She had a bout of this last fall and was using triamcinolone cream b.i.d. to clear it. Unfortunately, over the last two or three weeks, it has flared back up again. She was using the 0.1% triamcinolone cream. Physical examination reveals a pleasant, 38-year-old woman who is blue eyed, red haired, and very fair skinned. She has patchy eczema on the left anterior vitale, and a large, contiguous, excoriated patch plaque involving the entire right anterior vitale of eczematous dermatitis. There is some slight impetiginization at the periphery. She has no involvement of the upper extremities, hands, or arms. Assessment and Plan: Eczematous dermatitis. a. I advised the patient to stop her phillips blossom-scented body wash and use just Dove or Ivory, fragrance free. b. I recommended we begin again triamcinolone 0.1% ointment, applying on a b.i.d. basis to clear, and then return to clinic within the month; 80 grams dispensed with zero refills. c. I would likely recommend CeraVe cream as a good emollient to use following clearance of her dermatitis. I did not want to give her too much information today. d. I reassured the patient that this is not indicative of an underlying medical disorder or illness. Discussed this is related to her fair skin. There is a family history of eczema in her father. e. Return to clinic in one month. COPY: Iesha Malave M.D. documented in this encounter Plan of Treatment Not on file documented as of this encounter Visit Diagnoses Diagnosis Eczematous dermatitis- Primary Contact dermatitis and other eczema, due to unspecified cause documented in this encounter Care Teams Bread Jockey Relationship Specialty Start Date End Date Iesha Malave MD [address] [place] [address] PCP - General 06/13/10 documented as of this encounter
--- OUTSIDE RECORDS SUMMARY | 2024-03-27 06:24 | XMS_ITS | Encounter Summary ---
Author Organization [facility] Address [address] [place] [address] Care Team Providers Care President & Ceo Name Role Phone Iesha Malave MD Primary Care Provider [phone] Encounter Details Date Type Department Care Team (Late st Contact Info) Description 12/12/2023 Lab Requisition [facility] Pathology & Laboratory Medicine - [address] [id number] Outr Resulting Lab, Provider Social History Tobacco [...] Procedure Name Priority Date/Time Associated Diagnosis Comments FOLATE Routine 12/11/2023 11:55 EDT documented in this encounter Results * FOLATE (12/11/2023 11:55 EDT) Folate 8.0 See Note ng/mL 12/12/2023 19:29 EDT [facility] Comment: Reference Ranges for Folate: Deficient: ?< 3.4 ng/mL Indeterminate: ??3.4 - 5.4 ng/mL Normal: ? > 5.4 ng/mL The results of this assay can be falsely elevated due to the consumption of Biotin. Blood VENOUS BLOOD / Unknown 12/11/2023 11:55 EDT 12/12/2023 18:16 EDT Provider Outr Resulting Lab CHEMISTRY & BLOOD GAS ORDERABLES [facility] [address] [place], [place] [phone] documented in this encounter Visit Diagnoses Not on filedocumented in this encounter Care Teams President & Ceo Relationship Specialty Start Date End Date Iesha Malave MD [address] [place] [address] PCP - General 05/21/13 documented as of this encounter
--- OUTSIDE RECORDS SUMMARY | 2024-03-27 06:24 | XMS_ITS | Encounter Summary ---
Author Organization [facility] Address [address] [place] [address] Care Team Providers Care Signal Tower Operator Name Role Phone Iesha Malave MD Primary Care Provider [phone] Encounter Details Date Type Department Care Team (Late st Contact Info) Description 12/11/2023 Lab Requisition [facility] Pathology & Laboratory Medicine - [address] [id number] Outr Resulting Lab, Provider Social History Tobacco [...] Procedure Name Priority Date/Time Associated Diagnosis Comments HEPATITIS C AB W REFLEX TO HCV RNA BY PCR Routine 12/11/2023 11:55 EDT documented in this encounter Results * HEPATITIS C AB W REFLEX TO HCV RNA BY PCR (12/11/2023 11:55 EDT) Hep C Antibody Negative Negative 12/12/2023 9:30 EDT [facility] Blood VENOUS BLOOD / Unknown 12/11/2023 11:55 EDT 12/11/2023 21:50 EDT Provider Outr Resulting Lab CHEMISTRY & BLOOD GAS ORDERABLES [facility] [address] [place], [place] [address] documented in this encounter Visit Diagnoses Not on filedocumented in this encounter Care Teams Signal Tower Operator Relationship Specialty Start Date End Date Iesha Malave MD [address] [place], [place] [address] PCP - General 05/21/13 documented as of this encounter
--- OUTSIDE RECORDS SUMMARY | 2024-03-27 06:24 | XMS_ITS | Referral Summary ---
Author Organization [facility] Address [address] [place] [address] Care Team Providers Care Vice Chancellor Name Role Phone Iesha Malave MD Primary Care Provider [phone] Encounters Date Type Department Care Team Description 02/13/2024 Lab Requisition [facility] Pathology & Laboratory Medicine - [facility] [address] [place] [address] Outr Resulting Lab, Provider from Last 3 Months Social History Tobacco Use Types Packs/Day Years Used Date Smoking Tobacco: Never Assessed Interpersonal Safety Answer Date Record ed Physically Hurt Never 02/21/2020 Verbally Threaten Not on file 02/21/2020 Sex and Gender Information Value Date Recorded Sex Assigned at Not on file Gender Identity Not on file Sexual Orientation Not on file Plan of Treatment Not on file Procedures Procedure Name Priority Date/Time Associated Diagnosis Comments HAPTOGLOBIN Routine 02/13/2024 11:20 EDT HEPATITIS C AB W REFLEX TO HCV RNA BY PCR Routine 12/11/2023 11:55 EDT from Last 3 Months or Most Recently Relevant to Health Maintenance Results * (ABNORMAL) HAPTOGLOBIN (02/13/2024 11:20 EDT) Haptoglobin 282(H) 32 - 197 mg/dL 02/14/2024 10:57 EDT [facility] Blood VENOUS BLOOD / Unknown 02/13/2024 11:20 EDT 02/13/2024 21:58 EDT Provider Outr Resulting Lab CHEMISTRY & BLOOD GAS ORDERABLES [facility] [address] [place], [place] [id number] * HEPATITIS C AB W REFLEX TO HCV RNA BY PCR (12/11/2023 11:55 EDT) Hep C Antibody Negative Negative 12/12/2023 9:30 EDT [facility] Blood VENOUS BLOOD / Unknown 12/11/2023 11:55 EDT 12/11/2023 21:50 EDT Provider Outr Resulting Lab CHEMISTRY & BLOOD GAS ORDERABLES Performing Organization Address City/[facility] Co de Phone Number [facility] [address] [place] [address] from Last 3 Months or Most Recently Relevant to Health Maintenance Care Teams Vice Chancellor Relationship Specialty Start Date End Date Iesha Malave MD [address] [place], [place] [id number] PCP - General 05/21/13
--- OUTSIDE RECORDS SUMMARY | 2024-03-27 06:24 | XMS_ITS | Clinical Summary ---
Author Organization Health system Address [address] [place] [address] Care Team Providers Care Hand Cementer Name Role Phone Iesha Malave MD Primary Care Provider [phone] Encounters Date Type Department Care Team Description 02/13/2024 Lab Requisition [facility] Pathology & Laboratory Medicine - [address] [address] Outr Resulting Lab, Provider from Last 3 [...] Health Maintenance Due Date Last Done Comments Hepatitis B Vaccine (1 of 3 - 19+ 3-dose series) 07/13 COVID-19 Vaccine ( season) 2024 Hepatitis C Screen Completed 12/11/2023 Procedures Procedure Name Priority Date/Time Associated Diagnosis Comments HAPTOGLOBIN Routine 02/13/2024 11:20 EDT HEPATITIS C AB W REFLEX TO HCV RNA BY PCR Routine 12/11/2023 11:55 EDT from Last 3 Months or Most Recently Relevant to Health Maintenance Results * (ABNORMAL) HAPTOGLOBIN (02/13/2024 11:20 EDT) Haptoglobin 282(H) 32 - 197 mg/dL 02/14/2024 10:57 EDT [facility] Blood VENOUS BLOOD / Unknown 02/13/2024 11:20 EDT 02/13/2024 21:58 EDT Provider Outr Resulting Lab CHEMISTRY & BLOOD GAS ORDERABLES [facility] [address] [place] [address] * HEPATITIS C AB W REFLEX TO HCV RNA BY PCR (12/11/2023 11:55 EDT) Hep C Antibody Negative Negative 12/12/2023 9:30 EDT [facility] Blood VENOUS BLOOD / Unknown 12/11/2023 11:55 EDT 12/11/2023 21:50 EDT Provider Outr Resulting Lab CHEMISTRY & BLOOD GAS ORDERABLES Performing Organization Address City/[facility]/ZIP Co de Phone Number [facility] [address] [place], [place] [address] from Last 3 Months or Most Recently Relevant to Health Maintenance Care Teams Hand Cementer Relationship Specialty Start Date End Date Iesha Malave MD [address] [place], [place] [address] PCP - General 05/21/13
--- OUTSIDE RECORDS SUMMARY | 2024-03-27 06:24 | XMS_ITS | Encounter Summary ---
Author Organization [facility] Address [address] [place] [address] Care Team Providers Care Meat Cutting Block Repairer Name Role Phone Iesha Malave MD Primary Care Provider [phone] Encounter Details Date Type Department Care Team (Late st Contact Info) Description 02/13/2024 Lab Requisition [facility] Pathology & Laboratory Medicine - [address] [id number] Outr Resulting Lab, Provider Social History Tobacco [...] Diagnosis Comments HAPTOGLOBIN Routine 02/13/2024 11:20 EDT documented in this encounter Results * (ABNORMAL) HAPTOGLOBIN (02/13/2024 11:20 EDT) Haptoglobin 282(H) 32 - 197 mg/dL 02/14/2024 10:57 EDT [facility] Blood VENOUS BLOOD / Unknown 02/13/2024 11:20 EDT 02/13/2024 21:58 EDT Provider Outr Resulting Lab CHEMISTRY & BLOOD GAS ORDERABLES [facility] [address] [place], [place] [phone] documented in this encounter Visit Diagnoses Not on filedocumented in this encounter Care Teams Meat Cutting Block Repairer Relationship Specialty Start Date End Date Iesha Malave MD [address] [place], [place] [phone] PCP - General 05/21/13 documented as of this encounter
--- OUTSIDE RECORDS SUMMARY | 2024-03-27 06:24 | XMS_ITS | Encounter Summary ---
Author Organization [facility] Address [address] [place] [address] Care Team Providers Care Wireless Telegrapher Name Role Phone Unknown, Provider Primary Care Provider [phone] Encounter Details Date Type Department Care Team (Late st Contact Info) Description 05/18/2013 Results Only [facility] Laboratory Services - [facility] ([facility] [address], [place] [address] Iesha Ogden MD [address] [place], [place] [id number] Social History Tobacco Use Types Packs/Day Years Used Date Smoking Tobacco: Never Assessed Sex and Gender Information Value Date Recorded Sex Assigned at Not on file Gender Identity Not on file Sexual Orientation Not on file documented as of this encounter Plan of Treatment Not on file documented as of this encounter Procedures Procedure Name Priority Date/Time Associated Diagnosis Comments SURGICAL PATHOLOGY Routine 05/18/2013 21 :57 EDT documented in this encounter Results * SURGICAL PATHOLOGY (05/18/2013 21:57 EDT) Pathology Report: SURGICAL PATHOLOGY REPORT Reports generated via electronic interface contain original data; however they are lacking the format of the original report. Caution should be taken when reading/interpreting unformatted reports. Name: ? LUIS M MOREL ? Accession #: ? [id number] ? : ? 1975 (Age: 37) ??F ? Collect Date: ? 05/18/2013 ? Location: ? [facility] ? Receive Date: ? 05/19/2013 ? Provider: IESHA OGDEN MD Copy to: ? Final Pathologic Diagnosis: SKIN OF LEG, RIGHT LOWER, PUNCH BIOPSY: - Subacute spongiotic dermatitis. ??See comment. Comment: The biopsy shows features of spongiotic (eczematous) dermatitis with epidermal hyperplasia and scale formation. ??The features could represent nummular eczema. A few eosinophils are present within the inflammatory infiltrate and, therefore, allergic contact dermatitis would also be included in the differential diagnosis. ??The superficial dermis is expanded by a vascular proliferation with mild erythrocyte extravasation and thickened collagen bundles. ??Early stasis dermatitis, therefore, is also a consideration. ??A drug-related eruption is less likely, given the aforementioned features. ??Features of connective tissue disease are not identified. ??(Dr. Collins)/glendy Microscopic Description: Sections consist of a punch biopsy of skin to the deep reticular dermis. ??There is orthohyperkeratosis and focal parakeratosis. ??The epidermis is irregularly acanthotic with tapered rete ridges. ??The epidermis shows a variable degree of spongiosis with proportionate lymphocytic exocytosis. ??The interface is intact. The dermal papillae are expanded by thick bundles of collagen and vessels. ??The vessels are thick walled and lined by plump endothelial cells. ??Areas of erythrocyte extravasation are present. ??There is a sparse superficial dermal inflammatory infiltrate that is composed primarily of lymphomononuclear cells, although a small number of eosinophils are present. ??Deeper sections show similar features. ??On sections prepared with iron stain, no appreciable hemosiderin is evident. ??(Dr. Collins)/will Document reviewed and electronically signed by: FREDY COLLINS MD Report ??Date: 05/22/2013 16:34 By the signature above, the attending physician certifies that he/she has personally conducted a gross and/or microscopic examination of the described specimens and rendered or confirmed the above diagnosis. Specimen(s) Received: Rt lower leg 3.0 mm punch bx Clinical History: Entire R vitale-red and excoriated, drug reaction, rule out connective tissue disease Gross Description: Received in formalin labelled with proper patient identification (initials N, B) and 3.0 mm punch bx RLL is a punch biopsy of white skin (0.3 cm in diameter and 0.2 cm in thickness). ??Submitted intact in 1. Anushka Rankin 05/20/2013 08:33 AM End of Report [facility] 05/18/2013 21:5 7 EDT 05/19/2013 21:57 EDT Iesha Ogden MD PATHOLOGY ORDERABLES Performing Organization Address City/State/[facility] Co de Phone Number [facility] [address] [place] [address] documented in this encounter Visit Diagnoses Not on filedocumented in this encounter Care Teams Wireless Telegrapher Relationship Specialty Start Date End Date Unknown, Provider, PCP - General 05/19/13 05/20/13 documented as of this encounter
--- NOTE | 2024-03-27 06:39 | W.ANESPRE ---
General Info Date of Service Date Performed: 03/27/24 Height: 5 ft 3 in Weight: 91.739 kg Body Mass Index (BMI): 35.8 Surgical Procedure: Operation Date: 03/27/24 07:35 Proposed Procedure Side Surgeon p Colonoscopy/Gastroscopy/PAP Smear Under Anesthesia Jaylene Bray DO Meds Allergies and Home Medications Allergies Allergy/AdvReac Type Severity Reaction Status Date / Time No Known Allergies Allergy Verified 03/27/24 06:45 Home Medication ?Medication ?Instructions ?Recorded citalopram 10 mg tablet 10 mg PO DAILY 04/28/19 lorazepam 0.5 mg tablet 0.5 mg PO DAILY 04/28/19 valacyclovir 1 gram tablet 2,000 mg (2 x 1 gram) PO BID PRN 04/28/19 cold sores #30 tabs triamcinolone acetonide 0.1 % 1 applic topical BID PRN rash #80 10/26/20 topical cream grams aripiprazole 15 mg tablet 15 mg PO DAILY 06/11/22 metformin 500 mg tablet 500 mg PO DAILY 06/11/22 methylphenidate HCl 36 mg 36 mg PO DAILY 06/12/23 tablet,extended release 24 hr (Concerta) norethindrone (contraceptive) 0.35 0.35 mg PO DAILY #84 tabs 06/12/23 mg tablet cyanocobalamin (vitamin B-12) 1,000 mcg PO DAILY #90 caps 09/02/23 1,000 mcg capsule rosuvastatin 20 mg tablet 20 mg PO DAILY #90 tabs 09/02/23 amlodipine 10 mg tablet 10 mg PO DAILY #90 tabs 09/11/23 losartan 100 mg tablet 100 mg PO DAILY #90 tabs 10/14/23 cholecalciferol (vitamin D3) 50 2,000 unit PO DAILY #90 caps 12/23/23 mcg (2,000 unit) capsule ferrous sulfate 325 mg (65 mg 325 mg PO DAILY #90 tabs 12/23/23 iron) tablet omega-3 acid ethyl esters 1 gram 4 cap PO DAILY #360 caps 12/23/23 capsule (Lovaza) Current Visit Medications: Current Medications Generic Name Dose Route Start Last Admin Trade Name Freq PRN Reason Stop Dose Admin Hyoscyamine Sulfate 0.125 mg 03/27/24 10:36 Hyoscyamine 0.125 Mg Sl/Oral/Chew SL 04/26/24 10:35 DIRECTED PRN Ringer's Solution 1,000 mls @ 80 mls/hr 03/27/24 06:00 IV 03/27/24 23:59 [facility] IV Miscellaneous Supplies 1 each 03/27/24 06:00 Iv Access IV 03/27/24 23:59 DIRECTED FERNANDO Ondansetron HCl 4 mg 03/27/24 10:36 Ondansetron 4 Mg/2 Ml Vial IVP 04/26/24 10:35 Q4H PRN PRN Nausea / Vomiting Sodium Chloride 0 ml 03/27/24 06:00 Normal Saline Flush 10 Ml Syr IV 03/27/24 23:59 PRN PRN Sodium Chloride 0 ml 03/27/24 06:00 Normal Saline 10 Ml Vial IJ 03/27/24 23:59 DIRECTED PRN Sterile Water 0 ml 03/27/24 06:00 Water,Injection,Sterile 10 Ml Vial IJ 03/27/24 23:59 DIRECTED PRN PFSH Active Problems Active Problems: Problem Status Onset Code Iron deficiency anemia Acute D50.9 Bipolar disorder Chronic F31.9 PTSD (post-traumatic stress disorder) Chronic F43.10 Cognitive developmental delay Chronic F81.9 Hypertension Chronic I10 Hyperlipidemia Chronic E78.5 Herpes labialis Chronic B00.1 Oral contraceptive pill surveillance Chronic Z30.41 Atopic dermatitis Chronic L20.9 Vitamin D insufficiency Chronic E55.9 Surgical History Surgical History No significant past surgical history Tobacco Smoking/Tobacco Use Status: Never Passive smoking exposure: Yes Alcohol Alcohol Intake: never Substance Use Substance use: Never Substance use type: does not use Vital Signs and Lab Results Vital Signs Most Recent Vital Signs in EMR: Temp Pulse Resp BP Pulse Ox 36.7 C 94 H 20 139/79 99 03/27/24 06:33 03/27/24 06:33 03/27/24 06:33 03/27/24 06:33 03/27/24 06:33 Lab Results Blood Type / Crossmatch: No Data to Display Complete Blood Count: No Data to Display Complete Metabolic Panel: No Data to Display Liver Function Panel: No Data to Display Coagulation Panel: No Data to Display Cardiac Panel: No Data to Display Arterial Blood Gas: No Data to Display Venous Blood Gas: No Data to Display Pancreas Panel: No Data to Display Thyroid Panel: No Data to Display Infectious Disease: No Data to Display Blood Cultures: No Data to Display Toxicology Panel: No Data to Display Panel: No Data to Display Imaging and Studies Imaging and Studies Study information below may be from another EMR and interpreted by another provider. Please see original notes in EMR for more complete details. EKG Summary: DATE/TIME OF SERVICE: 06/11/22 1237 HR:102 bpm Conclusion Sinus tachycardia...rate> 99 Normal Electrocardiogram Echocardiogram Summary: 02/2024: Conclusion Normal left ventricular wall thickness and chamber size. Ejection fraction is 65%. Wall motion is normal Normal right ventricular size and function Both atria are normal in size There is no structural or hemodynamically significant valvular disease Estimated right ventricular systolic pressure is 30 mmHg Anesthesia Assessment and Plan Anesthesia History Personal History: No History of Anesthesia Complications Family History: No Family History of Anesthesia Complications Exercise Tolerance Exercise Tolerance: Metabolic Equivalents>4 Pertinent Negatives Pertinent Negatives: No Symptoms of GERD and No Major Cardiovascular Symptoms or Complaints Cardiac & Pulmonary Exam Cardiac Exam: Normal S1/S2 Heart Sounds Pulmonary Exam: Clear Bilateral Breath Sounds Implantable Cardiac Device Does patient have a Pacemaker or an ICD?: No Airway Exam Known Difficult Airway: No Mallampati Class: 2 Mouth Opening: Normal (> 3cm) Thyromental Distance: Greater than 3 cm Neck Range of Motion: Full ROM Neck Circumference: Normal Teeth Condition: Normal Dentition ASA Classification ASA Score: ASA 2 Emergency Case?: No NPO Status NPO Status: NPO Clears >2 hours, Solids >8 hours Status Status: Negative HCG Anesthesia Plan Resuscitation Status: Full Code Anesthesia Technique: General Anesthesia Airway Planned: Natural Airway Monitors Used: Standard Monitors
[2024-03-27] MEDS: Lactated Ringers 1,000 ML 80 ML IV (06:56)
--- NOTE | 2024-03-27 07:50 | STOM_PTH ---
PATIENT: Shana Hardin LOC: [facility] U#:[id number] AGE/SX: 48/F ROOM: RE03/27/[address]: Jaylene Bray : 1975 BED: DIS: 03/27/2024 SPEC #: [id number] RECD: 03/27/24 13:03 STATUS: DERICK Scout #: [id number] KARRI: 03/27/24 07:[address]: Jaylene Bray DEPT: Surgical Specimen RECD BY: Chelsi Carr ENTERED: 03/27/24 13:09 SP TYPE: STOMACH OTHR DR: Velvet Edwards, AIRPORT SKILLED MAINTENANCE SUPERVISOR Tissues: 1 - BIOPSY BOWEL 2 - BIOPSY BOWEL 3 - STOMACH BIOPSY 4 - STOMACH BIOPSY 5 - ESOPHAGUS BIOPSY 6 - ESOPHAGUS BIOPSY 7 - ESOPHAGUS BIOPSY Procedures: GROSS AND MICRO LEVEL 4 Comments: [id number]
--- NOTE | 2024-03-27 08:15 | PAPFT_PTH ---
PATIENT: Shana Hardin LOC: [facility] U#:[id number] AGE/SX: 48/F ROOM: RE03/27/[address]: Jaylene Bray : 1975 BED: DIS: 03/27/2024 SPEC #: [id number] RECD: 03/27/24 13:31 STATUS: DERICK HERNANDEZ #: [id number] KARRI: 03/27/24 08:[address]: Jaylene Bray DEPT: [facility] Cytology RECD BY: Chelsi Carr ENTERED: 03/27/24 13:31 SP TYPE: PAPFT MIRIAM DR: Velvet Edwards, BEAUTY SALES CONSULTANT Tissues: 1 - CX/ENDOCX FOR PAP SMEARS Procedures: PAP THIN PREP/UVM Screening Comments: [id number] (UNSATISFACTORY FOR EVALUATION)
[2024-03-27] MEDS: Albuterol/Ipratropium 3 ML UPD VIAL UPD (09:13)
--- NOTE | 2024-03-27 10:08 | ANES.POST_ITS ---
Postoperative Evaluation Date, Time and Location Date Performed: 03/27/24 Time Performed: 09:50 Patient Location: Day Surgery Unit Vital Signs Most Recent Imported Vital Signs: Most Recent Vital Signs Temp Pulse Resp BP Pulse Ox 36.5 C 72 16 118/74 95 03/27/24 09:45 03/27/24 09:45 03/27/24 09:45 03/27/24 09:45 03/27/24 09:45 Pain Score Most Recent Pain Score: Most Recent Pain Score Pain Level 0 03/27/24 09:45 Assessment Mental Status: Awake (Alert & Oriented to Patient Baseline) Airway and Respiratory Function: Patent airway with normal (patient baseline) respiratory exam Cardiovascular Function: Hemodynamically Stable Hydration Status: Adequately Hydrated Nausea & Vomiting: No Nausea or Vomiting Pain: Pt. Denies Any Pain Peripheral Nerve Block: Patient did not receive a nerve block Postoperative Comments:: Discussed events of case and questions answered. Pt. doing well with no c omplaints. Discussed and will give aspiration education for home with advice to call surgeon or go to ED if symptoms develop.
== END 2024-03-27 11:20 | disposition home or self-care (01) ==
LOC: SUR 06:23
PROVIDERS: PCP Nurse Practitioner Family; Visit Provider Surgery
PROC: (CPT 45378; principal; 2024-03-27 07:30)
DX: D50.9 Iron deficiency anemia, unspecified; K21.9 Gastro-esophageal reflux disease without esophagitis; K44.9 Diaphragmatic hernia without obstruction or gangrene; K20.90 Esophagitis, unspecified without bleeding; Z12.11 Encounter for screening for malignant neoplasm of colon; K22.89 Other specified disease of esophagus; K31.A0 Gastric intestinal metaplasia, unspecified
CPT/HCPCS: 45378; 43239; 81025; 88142; 88305; J0330; J2001; J2250; J2405; J2704; J7620

== ENCOUNTER 2024-04-08 02:17 | Outpatient (CLI) | payer MEDICAID, SELFPAY ==
--- NOTE | 2024-04-08 07:00 | DI.RAD_ITS ---
Exam(s) RF BARIUM SWALLOW UGI EXAM: RF BARIUM SWALLOW UGI CLINICAL HISTORY: reflux,lg hiatal hernia /preop planning,k21.9,k44.9,k20.90 TECHNIQUE: 2D and real-time digital imaging was performed. CONTRAST MATERIAL: Oral barium Oral water soluble contrast was administered. Single and air contras t technique COMPARISON: No exams were available for comparison FINDINGS: ESOPHAGUS: There was no aspiration evident. No Zenker's diverticulum. Esophagus exhibits normal diameter and t here are no fixed lesions evident well as no evidence of Schatzki ring. However, as this exam progre ssed there was a sliding-type hiatal hernia demonstrated which, after air-contrast technique was show n to measure approximately 5 x 5 cm. There is no prominent GE reflux demonstrated during this exam. STOMACH: As above. No other focal findings in the stomach. No ulcer craters evident. Gastric fold pattern a ppears unremarkable. DUODENUM: Normal diameter. No ulcer craters. No duodenal diverticuli evident. Opacified proximal jejunal loops reveal no evidence of malrotation IMPRESSION: 1. Sliding-type hiatal hernia which measures approximately 5 x 5 cm largest measurement. No other fi ndings in the esophagus. No obvious GE reflux demonstrated during this exam. 2. No significant findings in the stomach and duodenum. RADIATION DOSE DELIVERED: marcel Goodwin= 41.4 mGy
[2024-04-08] MEDS: Simethicone/Sod Bicarb/Cit Ac, 4 gram PACKET 1 PACKET PO (10:45)
[2024-04-08] MEDS: Barium Sulfate 98% W/W 140 ML BTL PO (10:46)
[2024-04-08] MEDS: Barium Sulfate 60% W/V 355 ML BTL PO (10:47)
== END 2024-04-08 02:37 ==
LOC: DI 02:17
PROVIDERS: PCP Nurse Practitioner Family; Visit Provider Surgery
DX: K21.9 Gastro-esophageal reflux disease without esophagitis; K44.9 Diaphragmatic hernia without obstruction or gangrene
CPT/HCPCS: 74221; 74246; J3490

== ENCOUNTER 2024-07-31 00:56 | Outpatient (CLI) | payer MEDICAID, SELFPAY ==
--- OUTSIDE RECORDS SUMMARY | 2024-07-31 01:12 | XMS_ITS | Encounter Summary ---
[place] [address] Care Team Providers Care Food Cart Attendant Name Role Phone Iesha Malave MD Primary Care Provider [phone] Encounter Details Date Type Department Care Team (Late st Contact Info) Description 02/13/2007 [place] [address] Jose Elias Godinez MD DIAGNOSTIC RADIOLOGY Social [...] 4:04 PM EDT) Surgical Pathology Report [id number] ? Location: [facility] The signing pathologist has [...] Papilloma DCIS Report to: Jarrod Julian MD [facility] [address] [place] [address] Gross Description A - Labeled/Fixativ e: Left [...] rendering the final pathologic diagnosis. [facility] 02/13/2007 4:04 PM EDT Jose Elias Godinez MD PATHOLOGY/CYTOLOGY O RDERABLES Performing Organization Address City/State/[facility] Co de Phone Number [facility] documented in this encounter Visit Diagnoses Not on filedocumented in this encounter Care Teams Food Cart Attendant Relationship Specialty Start Date End Date Iesha Malave MD [address] [place] [address] PCP - General 06/13/10 04/05/24 documented as of this encounter
--- OUTSIDE RECORDS SUMMARY | 2024-07-31 01:12 | XMS_ITS | Encounter Summary ---
Author Organization [facility] [place] [address] Care Team Providers Care Structural Steel Trades Worker Name Role Phone IrajaurajoselitoSerenaVelvet APRN Primary Care Provider Reason for Visit * Diagnostic Test (Routine) - Closed Specialty Diagnoses / Procedures Referred By Contac t Referred To Contact Gastroenterology Diagnoses Hiatal hernia Heartburn HREM - heartburn Procedures High Resolution Esophageal Manometry Jaylene Bray, DO [address] [place] [address] [facility] [place] [address] [place] [address] Referral ID Status Reason Start Date Expiration Date V isits Requested Visits Authorized [id number] Closed Test Only 04/06/2024 04/06/2025 1 1 Encounter Details Date Type Department Care Team (Late st Contact Info) Description 06/04/2024 9:00 AM EST Office [place] [address] Hiatal hernia; Heartburn Social History Tobacco Use Types Packs/Day Years Used Date Smoking Tobacco: Never Assessed Sex and Gender Information Value Date Recorded Sex Assigned at Not on file Gender Identity Not on file Sexual Orientation Not on file documented as of this encounter Progress Notes * Chen Rubi, RN - 06/04/2024 9:00 AM EST A description of the esophageal manometry procedure was provided to the patient. All questions wereanswered and the patient verbalized understanding. The HREM catheter was placed via the right naris without difficulty. The esophageal manometry procedure was performed and the catheter was removed. Prior to placement of the impedance catheter, a description of the procedure was provided to patient. All questions were answered and the patient verbalized understanding. Written instructions were given to the patient as well. At 09:47 the impedance catheter was placed in the right naris without difficulty. It was secured at32 cm with tape. This study is being performed on acid suppressants, which was confirmed by the patient. The patientis taking Pantoprazole 40 mg daily. The patient tolerated the procedure well. * Jose Elias Torres MD - 06/04/2024 9:00 AM EST Images from the original note were not included. HIGH-RESOLUTION ESOPHAGEAL MANOMETRY PROCEDURE NOTE Patient: Shana Hardin Address: [address] [address] : 1975 Date of service: 06/04/2024 Indication: Heartburn Procedure: The patient arrived after an overnight fast. After verbal consent, a Rita motility catheter with 36 circumferential sensors on 1 cm spacing with impedance sensors was inserted transnasally after application of topical anesthesia to the nasal passage. The catheter was positioned so that at least 2distal sensors were in the stomach and 2 proximal sensors were located above the UES. A 3-5 minute a cclimation period was provided followed by 10 wet swallows of 5 cc of water while supine. Normal values while supine: Upper esophageal sphincter residual pressure: < 12 mmHg Upper esophageal sphincter relaxation duration: > 480 msec Distal contractile integral (DCI): > 450 and < 8,000 mmHg x cm x s Distal latency time: > 4.5 sec Integrated EGJ relaxation pressure (IRP): < 15 mmHg Normal EGJ resting pressure (respiratory mean): 15-34 mmHg Findings: - Upper Esophageal Sphincter: normal mean residual pressure and relaxation duration - Body: 0% of swallows failed. 0% of swallows had premature contractions with shortened distal latency time. The remaining 100% of swallows were peristaltic, includin% of swallows with hypercontractility, 20% of swallows with weak peristalsis, and 0% of swallows with large breaks (>5 cm) in the 20mmHg isocontour line. - Esophagogastric Junction: Midpoint located 38 cm from the nares, and proximal extent located at 36 cm. 4cm hiatal hernia present. Normal resting pressure (mean 31 mmHg) and normal IRP in 100% of swallows (median 4.7 mmHg). - Bolus transit: Liquid boluses cleared in 80% of swallows. - Multiple rapid swallows: Peristaltic reserve: reduced (ratio of post-multiple rapid swallow DCI to median DCI on 10 supine swallows is <1.0) Deglutitive inhibition: normal deglutitive inhibition (DCI <100 mmHg*s*cm) during the maneuver Integrated relaxation pressure: 0 mmHg (normal <12 mmHg) - Rapid drink challenge: Esophageal body contractility: normal deglutitive inhibition (DCI <100 mmHg*s*cm) during the maneuver Integrated relaxation pressure: 0 mmHg (normal <12 mmHg) Stemhole Borer swallow: Impressions based on Shepherd Classification v4.0: No evidence of a clinically significant disorder of peristalsis or EGJ outflow obstruction. *These findings assume that mechanical obstruction has been ruled out. Jose Elias Torres MD, [facility] Section of Gastroenterology and Hepatology [facility] [place] [address] V: [phone] F: [phone] CC/EC: Velvet Edwards, SLIP OPERATOR [address] [place] [address] * Jose Elias Torres MD - 06/04/2024 9:00 AM EST Catheter-based pH/impedance procedure report Patient: Shana Hardin Address: [address] [address] : 1975 Referring provider: Jaylene Bray Date of service: 06/05/2024 Indication: Heartburn Procedure: The catheter was placed transnasally after topical anesthetic (1cc of 4% aerosol lidocaine and 1cc of 2% viscous lidocaine), with the esophageal pH sensor located 32cm from the nares, 5 cm above the manometrically identified lower esophageal sphincter. A gastric pH sensor was located 10 cm distal to the top of the lower esophageal sphincter. The patient was instructed to keep a diary of symptoms,and returned the next day for removal of the probe. Testing performed ON pantoprazole 40 mg OD acid-suppressive therapy. Analysis Duration Total (HH:MM): 22:51 Analysis Duration Upright (HH:MM): 12:45 Analysis Duration Supine (HH:MM): 10:06 Acid exposure time (AET): Total distal esophageal acid exposure time: 6 % of testing period Upright distal esophageal acid exposure time: 4 % of testing period Supine distal esophageal acid exposure time: 8.5 % of testing period DeMeester Score: 30.3 (normal: <14.7) Normal values for acid exposure time (AET) defined as the % of time with a pH <4 Conclusive evidence for pathologic reflux: AET >7.0% Borderline or inconclusive evidence for pathologic reflux: AET 4.0% to 7.0% Evidence against pathologic reflux: AET <4.0% Reflux symptom association (RSA): Symptom Index (SI) Symptom (# of occurrences) Acid Weak acid Nonacid All reflux Symptom (1) 100% 0% 0% 100% Symptom Association Probability (SAP) Symptom (# of occurrences) Acid Weak acid Nonacid All reflux Symptom 81.5% 0% 0% 71.9% Interpretation of reflux symptom association (RSA) Positive association: Symptom Associated Probability [SAP] > 95% AND Symptom Index [SI] > 50% No convincing association: Symptom Associated Probability [SAP] > 95% OR Symptom Index [SI] >50% No evidence of association: Symptom Associated Probability [SAP] < 95% AND Symptom Index [SI] < 50% Number of reflux events by impedance: 140 total (normal < 80) and 67 acidic (normal < 80) and 73 weakly acidic (normal < 80) Impression based on the Neil classification: Conclusive evidence for breakthrough acid reflux tested ON pantoprazole 40 mg OD medication No convincing association between reflux and recorded symptoms of symptom. However, definitive conclusions on reflux-symptom association are limited by the low number of recorded symptom events during the testing period. Evidence of elevated reflux burden measured by impedance. References: 1) Modern diagnosis of GERD: the Neil Consensus. Gut. 2018 Jan; 67(7): 2096-2730. 2) Validation of the Neil classification for GORD diagnosis: acid exposure time assessed by prolonged wireless pH monitoring in healthy controls and patients with erosive oesophagitis. Gut. 2020. doi10.1136/tufyjr-[id number]. Jose Elias Torres MD, [facility] Section of Gastroenterology and Hepatology [facility] [place] [address] V: [phone] F: [phone] CC/EC: Velvet Edwards APRN [address] [place] [address] documented in this encounter Plan of Treatment Not on file documented as of this encounter Visit Diagnoses Diagnosis Hiatal hernia Diaphragmatic hernia without mention of obstruction or gangrene Heartburn documented in this encounter Care Teams Structural Steel Trades Worker Relationship Specialty Start Date End Date Velvet Edwards APRN [address] [place] [address] PCP - General Family Medicine 04/06/24 documented as of this encounter
--- OUTSIDE RECORDS SUMMARY | 2024-07-31 01:12 | XMS_ITS | Encounter Summary ---
Author Organization [facility] [place] [address] Care Team Providers Care Clinical Manager Home Care Name Role Phone Velvet Edwards APRN Primary Care Provider Encounter Details Date Type Department Care Team (Late st Contact Info) Description 04/08/2024 Ancillary Procedure Radiology Library at [facility] [place] [address] Velvet Edwards APRN [address] [place], [place] [id number] Social History Tobacco Use Types Packs/Day Years Used Date Smoking Tobacco: Never Assessed Sex and Gender Information Value Date Recorded Sex Assigned at Not on file Gender Identity Not on file Sexual Orientation Not on file documented as of this encounter Plan of Treatment Not on file documented as of this encounter Procedures Procedure Name Priority Date/Time Associated Diagnosis Comments FILM LIBRARY STORAGE ONLY DX GI STUDY Routine 04/08/2024 12:00 AM EDT documented in this encounter Results * Film Library- Storage Only DX GI Study (04/08/2024 12:00 AM EDT) Narrative [facility] - 07/08/2024 2:18 PM EST This exam is auto-finalizing. It's purpose is for storage only. Velvet Edwards APRN IMG FILM LIBRARY OR DERABLES [place], [place] documented in this encounter Visit Diagnoses Not on filedocumented in this encounter Care Teams Clinical Manager Home Care Relationship Specialty Start Date End Date Velvet Edwards APRN [address] [place] [address] PCP - General Family Medicine 04/06/24 documented as of this encounter
--- OUTSIDE RECORDS SUMMARY | 2024-07-31 01:12 | XMS_ITS | Encounter Summary ---
Author Organization [facility] [place] [address] Care Team Providers Care Manager Psychiatry Name Role Phone Velvet Edwards APRN Primary Care Provider Encounter Details Date Type Department Care Team (Latest Contact Info) Description 06/04/2024 Travel Social History Tobacco Use Types Packs/Day Years Used Date Smoking Tobacco: Never Assessed Sex and Gender Information Value Date Recorded Sex Assigned at Not on file Gender Identity Not on file Sexual Orientation Not on file documented as of this encounter Plan of Treatment Not on file documented as of this encounter Visit Diagnoses Not on filedocumented in this encounter Care Teams Manager Psychiatry Relationship Specialty Start Date End Date Velvet Edwards APRN [address] [place], [place] [address] PCP - General Family Medicine 04/06/24 documented as of this encounter
--- OUTSIDE RECORDS SUMMARY | 2024-07-31 01:12 | XMS_ITS | Encounter Summary ---
Author Organization [facility] Address [address] [place] [address] Care Team Providers Care Riveting Machine Operator Tape Control Name Role Phone Iesha Malave MD Primary Care Provider [phone] Encounter Details Date Type Department Care Team (Late st Contact Info) Description 12/11/2023 Lab Requisition [facility] Pathology & Laboratory Medicine - [address] [id number] Outr Resulting Lab, Provider Social History Tobacco Use Types Packs/Day Years Used Date Smoking Tobacco: Never Assessed Interpersonal Safety Answer Date Record ed Physically Hurt Never 02/21/2020 Verbally Threaten Not on file 02/21/2020 Comments Unknown Sex and Gender Information Value Date Recorded Sex Assigned at Not on file Legal Sex Female 16:14 EDT Gender Identity Not on file Sexual Orientation Not on file documented as of this encounter Plan of Treatment Not on file documented as of this encounter Procedures Procedure Name Priority Date/Time Associated Diagnosis Comments T3, TOTAL Routine 12/11/2023 11:55 EDT documented in this encounter Results * T3, TOTAL (12/11/2023 11:55 EDT) T3, Total 138 97 - 169 ng/dL 12/11/2023 22:41 EDT [facility] Blood VENOUS BLOOD / Unknown 12/11/2023 11:55 EDT 12/11/2023 21:50 EDT us Provider Outr Resulting Lab CHEMISTRY & BLOOD GA S ORDERABLES Final Result [facility] [address] [place] [address] documented in this encounter Visit Diagnoses Not on filedocumented in this encounter Care Teams Riveting Machine Operator Tape Control Relationship Specialty Start Date End Date Iesha Malave MD [address] [place], [place] [id number] PCP - General 05/21/13 documented as of this encounter
--- OUTSIDE RECORDS SUMMARY | 2024-07-31 01:12 | XMS_ITS | Encounter Summary ---
[place] [address] Care Team Providers Care Manager Asset Name Role Phone Grace Velvet TALAVERA Primary Care Provider Reason for Referral * Diagnostic Test (Routine) - Closed Specialty Diagnoses / Procedures Referred By Contac t Referred To Contact Gastroenterology Diagnoses Hiatal hernia Heartburn pH impedance ON PPI - heartburn Procedures pH Impedance - [place] [address] [place] [address] [address] [place] [address] [address] Referral ID Status Reason Start Date Expiration Date V isits Requested Visits Authorized [id number] Closed Test Only 04/06/2024 04/06/2025 1 1 * Diagnostic Test (Routine) - Closed Specialty Diagnoses / Procedures Referred By Contac t Referred To Contact Gastroenterology Diagnoses Hiatal hernia Heartburn HREM - heartburn Procedures High Resolution Esophageal Manometry Jaylene Bray DO [address] [place] [address] [facility] [address] [place] [address] Referral ID Status Reason Start Date Expiration Date V isits Requested Visits Authorized [id number] Closed Test Only 04/06/2024 04/06/2025 1 1 Encounter Details Date Type Department Care Team (Late st Contact Info) Description 04/06/2024 Transcribe Orders eDH Incoming Referrals [phone] Jaylene Bray DO [address] [place], [place] [address] Hiatal hernia; Heartburn Social History Tobacco Use Types Packs/Day Years Used Date Smoking Tobacco: Never Assessed Sex and Gender Information Value Date Recorded Sex Assigned at Not on file Gender Identity Not on file Sexual Orientation Not on file documented as of this encounter Plan of Treatment Scheduled Orders Name Type Priority Associated Diagnoses Orde r Schedule High Resolution Esophageal Manometry GI Routine Hiatal hernia Heartburn Expected: 04/06/2024, Expires: 10/04/2025 pH Impedance - 24 Hour GI Routine Hiatal hernia Heartburn Expected: 04/06/2024 (Approximate), Expires: 10/04/2025 documented as of this encounter Visit Diagnoses Diagnosis Hiatal hernia Diaphragmatic hernia without mention of obstruction or gangrene Heartburn documented in this encounter Care Teams Manager Asset Relationship Specialty Start Date End Date Velvet Edwards APRN [address] [place] [address] PCP - General Family Medicine 04/06/24 documented as of this encounter
--- OUTSIDE RECORDS SUMMARY | 2024-07-31 01:12 | XMS_ITS | Encounter Summary ---
Author Organization [facility] Address [address] [place] [address] Care Team Providers Care Domestic Laundry Worker Name Role Phone Iesha Malave MD Primary Care Provider [phone] Encounter Details Date Type Department Care Team (Late st Contact Info) Description 12/12/2023 Lab Requisition [facility] Pathology & Laboratory Medicine - [address] [id number] Outr Resulting Lab, Provider Social History Tobacco [...] 8.0 See Note ng/mL 12/12/2023 19:29 EDT [facility] Comment: Reference Ranges for Folate: Deficient: ?< 3.4 ng/mL Indeterminate: ??3.4 - 5.4 ng/mL Normal: ? > 5.4 ng/mL The results of this assay can be falsely elevated due to the consumption of Biotin. Blood VENOUS BLOOD / Unknown 12/11/2023 11:55 EDT 12/12/2023 18:16 EDT us Provider Outr Resulting Lab CHEMISTRY & BLOOD GA S ORDERABLES Final Result [facility] [address] [place] [address] documented in this encounter Visit Diagnoses Not on filedocumented in this encounter Care Teams Domestic Laundry Worker Relationship Specialty Start Date End Date Iesha Malave MD [address] [place], [place] [id number] PCP - General 05/21/13 documented as of this encounter
--- OUTSIDE RECORDS SUMMARY | 2024-07-31 01:12 | XMS_ITS | Clinical Summary ---
Author Organization [facility] [place] [address] Care Team Providers Care Dispatcher Electric Power Name Role Phone Velvet Edwards SADAF Primary Care Provider Allergies No known active allergies Medications Medication [...] Noted Date Diagnosed Date Eczematous dermatitis 11/20/2013 Encounters Date Type Department Care Team Description 06/05/2024 10:00 AM EST Clinical [place] [address] Heart burn 06/04/2024 9:00 AM EST Office [place] [address] Hiatal hernia; Heartburn 06/04/2024 Travel 05/28/2024 Travel from Last 3 Months Social History Tobacco [...] Hepatitis B vaccine (0-59 yrs) (1) 1995 Tetanus/Diphtheria/Pertussis Vaccines (1 - Tdap) 07/13 HPV test 2006 PAP Smear 2006 Breast Cancer Share Decision Needed 2016 Breast Cancer screening 2016 Covid-19 Vaccine (1 - season) 2024 Influenza (Flu) vaccine (1 o f 1 - Influenza standard series) 03/22/2024 Care Teams Dispatcher Electric Power Relationship Specialty Start Date End Date Velvet Edwards APRN [address] [place] [address] [address] [place] [address] PCP - General Family Medicine 04/06/24
--- OUTSIDE RECORDS SUMMARY | 2024-07-31 01:12 | XMS_ITS | Encounter Summary ---
Author Organization [facility] [place] [address] Care Team Providers Care Soil Analyst Name Role Phone Velvet Edwards APRN Primary Care Provider Encounter Details Date Type Department Care Team (Latest Contact Info) Description 05/28/2024 Travel Social History Tobacco Use Types Packs/Day Years Used Date Smoking Tobacco: Never Assessed Sex and Gender Information Value Date Recorded Sex Assigned at Not on file Gender Identity Not on file Sexual Orientation Not on file documented as of this encounter Plan of Treatment Not on file documented as of this encounter Visit Diagnoses Not on filedocumented in this encounter Care Teams Soil Analyst Relationship Specialty Start Date End Date Velvet Edwards APRN [address] [place], [place] [address] PCP - General Family Medicine 04/06/24 documented as of this encounter
--- OUTSIDE RECORDS SUMMARY | 2024-07-31 01:12 | XMS_ITS | Referral Summary ---
Author Organization [facility] Address [address] [place] [address] Care Team Providers Care Critical Care Nurse Specialist Name Role Phone Iesha Malave MD Primary Care Provider [phone] Social History Tobacco Use Types Packs/Day Years [...] Recently Relevant to Health Maintenance Results * HEPATITIS C AB W REFLEX TO HCV RNA BY PCR (12/11/2023 11:55 EDT) Hep C Antibody Negative Negative 12/12/2023 9:30 EDT [facility] Blood VENOUS BLOOD / Unknown 12/11/2023 11:55 EDT 12/11/2023 21:50 EDT us Provider Outr Resulting Lab CHEMISTRY & BLOOD GA S ORDERABLES Final Result [facility] [address] [place], [place] [phone] from Last 3 Months or Most Recently Relevant to Health Maintenance Insurance MEDICAID [place] Care Teams Critical Care Nurse Specialist Relationship Specialty Start Date End Date Iesha Malave MD [address] [place], [place] [address] PCP - General 05/21/13
--- OUTSIDE RECORDS SUMMARY | 2024-07-31 01:12 | XMS_ITS | Encounter Summary ---
[place] [address] Care Team Providers Care Heavy Equipment Operator Name Role Phone Iesha Malave MD Primary Care Provider [phone] Reason for Visit * Reason Comments Establish Care Encounter Details Date Type Department Care Team (Late st Contact Info) Description 11/20/2013 2:15 PM EDT Office Visit Dermatology at [address] [phone] Felix Tierney MD [address] [facility] [place] [address] Eczematous dermatitis (Primary Dx) Social History Tobacco [...] woman who is referred today by Dr. Malaev for evaluation and treatment of recurrent dermatitis [...] cause documented in this encounter Care Teams Heavy Equipment Operator Relationship Specialty Start Date End Date Iesha Malave MD [address] [place] [address] PCP - General 06/13/10 04/05/24 documented as of this encounter
--- OUTSIDE RECORDS SUMMARY | 2024-07-31 01:12 | XMS_ITS | Encounter Summary ---
Author Organization [facility] Address [address] [place] [address] Care Team Providers Care Bell Spinner Name Role Phone Unknown, Provider Primary Care Provider Unava ilable Encounter Details Date Type Department Care Team (Latest Contact Info) Description 05/19/2013 14:04 EDT - 05/19/2013 23:59 EDT Hospital Encounter [address] [address] Unknown, Provider, Discharge Disposition: Home or Self Care Social History Tobacco Use Types Packs/Day Years Used Date Smoking Tobacco: Never Assessed Comments Unknown Sex and Gender Information Value Date Recorded Sex Assigned at Not on file Legal Sex Female 16:14 EDT Gender Identity Not on file Sexual Orientation Not on file documented as of this encounter Discharge Disposition Disposition Code Departure Means Destination Home or Self Skilled Nursing documented in this encounter Plan of Treatment Not on file documented as of this encounter Visit Diagnoses Not on filedocumented in this encounter Care Teams Bell Spinner Relationship Specialty Start Date End Date Unknown, Provider, PCP - General 05/19/13 05/20/13 documented as of this encounter
--- OUTSIDE RECORDS SUMMARY | 2024-07-31 01:12 | XMS_ITS | Clinical Summary ---
Author Organization [facility] Address [address] [place] [address] Care Team Providers Care Robotype Operator Name Role Phone Iesha Malave MD Primary Care Provider [phone] Social History Tobacco Use Types Packs/Day Years [...] C Antibody Negative Negative 12/12/2023 9:30 EDT [facility] Blood VENOUS BLOOD / Unknown 12/11/2023 11:55 EDT 12/11/2023 21:50 EDT us Provider Outr Resulting Lab CHEMISTRY & BLOOD GA S ORDERABLES Final Result [facility] [address] [place] [address] from Last 3 Months or Most Recently Relevant to Health Maintenance Insurance MEDICAID [place] Care Teams Robotype Operator Relationship Specialty Start Date End Date Iesha Malave MD [address] [place] [id number] PCP - General 05/21/13
--- OUTSIDE RECORDS SUMMARY | 2024-07-31 01:12 | XMS_ITS | Encounter Summary ---
Author Organization [facility] Address [address] [place] [address] Care Team Providers Care Action Finisher Name Role Phone Unknown, Provider Primary Care Provider Unava ilable Encounter Details Date Type Department Care Team (Late st Contact Info) Description 05/18/2013 Results Only [facility] - [facility] [place] [place] [address] [place] [address] Iesha Ogden MD [address] [place] [address] Social History Tobacco Use Types Packs/Day Years [...] LUIS M MOREL ? Accession #: ? [id number] ? : ? 1975 (Age: 37) ??F ? Collect Date: ? 05/18/2013 ? Location: ? [facility] ? Receive Date: ? 05/19/2013 ? Provider: EISHA OGDEN MD Copy to: ? Final Pathologic [...] cm in thickness). ??Submitted intact in 1. Anushkadeb Rankin 05/20/2013 08:33 AM End of Report [facility] 05/18/2013 21:5 7 EDT 05/19/2013 21:57 EDT us Iesha Ogden MD PATHOLOGY ORDERABLES Final Re sult [facility] [address] [place] [address] documented in this encounter Visit Diagnoses Not on filedocumented in this encounter Care Teams Action Finisher Relationship Specialty Start Date End Date Unknown, Provider, PCP - General 05/19/13 05/20/13 documented as of this encounter
--- OUTSIDE RECORDS SUMMARY | 2024-07-31 01:12 | XMS_ITS | Encounter Summary ---
Author Organization [facility] Address [address] [place] [address] Care Team Providers Care Patient Attendant Name Role Phone Iesha Malave MD Primary Care Provider [phone] Encounter Details Date Type Department Care Team (Late st Contact Info) Description 02/13/2024 Lab Requisition [facility] Pathology & Laboratory Medicine - [address] [id number] Outr Resulting Lab, Provider Social History Tobacco [...] 32 - 197 mg/dL 02/14/2024 10:57 EDT [facility] Blood VENOUS BLOOD / Unknown 02/13/2024 11:20 EDT 02/13/2024 21:58 EDT us Provider Outr Resulting Lab CHEMISTRY & BLOOD GA S ORDERABLES Final Result [facility] [address] [place] [address] documented in this encounter Visit Diagnoses Not on filedocumented in this encounter Care Teams Patient Attendant Relationship Specialty Start Date End Date Iesha Malave MD [address] [place], [place] [id number] PCP - General 05/21/13 documented as of this encounter
--- OUTSIDE RECORDS SUMMARY | 2024-07-31 01:12 | XMS_ITS | Encounter Summary ---
Author Organization [facility] Address [address] [place] [address] Care Team Providers Care Adjunct Sociology Professor Name Role Phone Iesha Malave MD Primary Care Provider [phone] Encounter Details Date Type Department Care Team (Late st Contact Info) Description 03/27/2024 Lab Requisition [facility] Pathology & Laboratory Medicine - [address] [address] Jaylene Bray, DO [address] [place], [place] [id number] Esophagitis, unspecified without bleeding; Diaphragmatic hernia without obstruction or gangrene; Gastro-esophageal reflux disease without esophagitis Social History Tobacco Use Types Packs/Day Years [...] Priority Date/Time Associated Diagnosis Comments SURGICAL PATHOLOGY Today 03/27/2024 7: 50 EDT Esophagitis, unspecified without bleeding Diaphragmatic hernia without obstruction or gangrene Gastro-esophageal reflux disease without esophagitis documented in this encounter Results * SURGICAL PATHOLOGY (03/27/2024 7:50 EDT) Note to Patient The following pathology results have been interpreted by your pathologist and may be available to you before your health provider has had the opportunity to review them. Please allow time for your provider to receive these results and explore management options, if applicable. 03/30/2024 13:12 [facility] Final Diagnosis A. JEJUNUM, PROXIMAL, BIOPSY: - Enteric mucosa with no significant diagnostic abnormality. B. 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 C. STOMACH, ANTRUM, BIOPSY: - Antral-type mucosa with no significant diagnostic abnormality. D. STOMACH, GREATER CURVE, BIOPSY: - Oxyntic-type mucosa with no significant diagnostic abnormality. E. GASTROESOPHAGEAL JUNCTION, BIOPSY: - Reactive squamocolumnar mucosa. - Negative for intestinal metaplasia. - Negative for dysplasia. F. GASTROESOPHAGEAL JUNCTION, NODULE, BIOPSY: - Reactive columnar mucosa with pancreatic acinar metaplasia. See comment. - Negative for intestinal metaplasia. - Negative for dysplasia. G. ESOPHAGUS, DISTAL, BIOPSY: - Reactive squamous mucosa. 03/30/2024 13:12 [facility] Diagnosis Comment Pancreatic acinar metaplasia may be seen in the setting of reflux esophagitis. 03/30/2024 13:12 [facility] Attestation By the signature below, the attending physician certifies that they have 1) personally conducted a gross and/or microscopic examination of the described specimen(s), and/or personally interpreted the results of laboratory testing of the described specimen(s), and 2) personally rendered or confirmed the above diagnosis. 03/30/2024 13:12 [facility] at 1312 Clinical History Screening colonoscopy, EGD, GE junction at 30 cm, large hiatal hernia @ 35 cm, esophagitis 03/30/2024 13:12 [facility] Gross Description A. Received in formalin labelled with proper patient identification (initials N, B) and 1. Proximal jejunum is a single de la rosa-brown tissue (0.4 x 0.25 x 0.1 cm). Submitted intact in A1. B. Received in formalin labelled with proper patient identification (initials N, B) and 2. Duodenal bulb is a single de la rosa-brown tissue (0.3 x 0.2 x 0.2 cm). Submitted intact in B1. C. Received in formalin labelled with proper patient identification (initials N, B) and 3. Antrum is a single de la rosa tissue (0.6 x 0.2 x 0.1 cm). Submitted intact in C1. D. Received in formalin labelled with proper patient identification (initials N, B) and 4. Greater curve is a single del a rosa-brown tissue (0.3 x 0.2 x 0.2 cm). Submitted intact in D1. E. Received in formalin labelled with proper patient identification (initials N, B) and 5. GE jxn biopsies are 6 de la rosa-white to de la rosa-brown tissues (0.4 x 0.3 x 0.1 cm to 0.2 x 0.1 x 0.1 cm). Entirely submitted in E1-E2. F. Received in formalin labelled with proper patient identification (initials N, B) and 6. Nodule @ GE junction are 2 brown tissues (0.25 x 0.2 x 0.2 cm and 0.2 x 0.2 x 0.1 cm). Entirely submitted in F1. G. Received in formalin labelled with proper patient identification (initials N, B) and 7. Distal esophagus is an aggregate of de la rosa-white tissues and a minimal amount of possible blood clot (0.4 x 0.3 x 0.1 cm). Entirely submitted in G1. Parris Li 03/28/2024 11:10 03/30/2024 13:12 [facility] Performing Lab [facility] 13:12 [facility] Scanned Images 03/30/2024 13:12 [facility] Tissue ESOPHAGEAL STRUCTURE / Unknown 03/27/2024 7:50 EDT 03/27/2024 17:43 EDT Tissue specimen (specimen) STRUCTURE OF SMALL INTESTINE / Unknown 03/27/2024 7:50 EDT 03/27/2024 17:43 EDT Tissue specimen (specimen) STOMACH STRUCTURE / Unknown 03/27/2024 7:50 EDT 03/27/2024 17:43 EDT Tissue specimen (specimen) STOMACH STRUCTURE / Unknown 03/27/2024 7:50 EDT 03/27/2024 17:43 EDT Tissue specimen (specimen) ESOPHAGEAL STRUCTURE / Unknown 03/27/2024 7:50 EDT 03/27/2024 17:43 EDT Tissue specimen (specimen) ESOPHAGEAL STRUCTURE / Unknown 03/27/2024 7:50 EDT 03/27/2024 17:43 EDT Tissue specimen (specimen) ESOPHAGEAL STRUCTURE / Unknown 03/27/2024 7:50 EDT 03/27/2024 17:43 EDT us Jaylene Bray DO PATHOLOGY ORDERABLES Final Re sult [facility] [address] [place], [place] [phone] documented in this encounter Visit Diagnoses Diagnosis Esophagitis, unspecified without bleeding Diaphragmatic hernia without obstruction or gangrene Diaphragmatic hernia without mention of obstruction or gangrene Gastro-esophageal reflux disease without esophagitis Esophageal reflux documented in this encounter Care Teams Adjunct Sociology Professor Relationship Specialty Start Date End Date Iesha Malave MD [address] [place], [place] [phone] PCP - General 05/21/13 documented as of this encounter
--- OUTSIDE RECORDS SUMMARY | 2024-07-31 01:12 | XMS_ITS | Encounter Summary ---
Author Organization [facility] Address [address] [place] [address] Care Team Providers Care Training Mgr Name Role Phone Iesha Malave MD Primary Care Provider Encounter Details Date Type Department Care Team (Late st Contact Info) Description 12/11/2023 Lab Requisition [facility] Pathology & Laboratory Medicine - [address] [phone] Outr Resulting Lab, Provider Social History Tobacco [...] Negative Negative 12/12/2023 9:30 EDT [facility] Blood VENOUS BLOOD / Unknown 12/11/2023 11:55 EDT 12/11/2023 21:50 EDT us Provider Outr Resulting Lab CHEMISTRY & BLOOD GA S ORDERABLES Final Result [facility] [address] [place] [address] documented in this encounter Visit Diagnoses Not on filedocumented in this encounter Care Teams Training Mgr Relationship Specialty Start Date End Date Iesha Malave MD [address] [place], [place] [phone] PCP - General 05/21/13 documented as of this encounter
--- OUTSIDE RECORDS SUMMARY | 2024-07-31 01:12 | XMS_ITS | Encounter Summary ---
Author Organization [facility] [place] [address] Care Team Providers Care Diesel Fitter Mechanic Name Role Phone IrajVelvet bey SADAF Primary Care Provider Reason for Visit * Diagnostic Test (Routine) - Closed Specialty Diagnoses / Procedures Referred By Contac t Referred To Contact Gastroenterology Diagnoses Hiatal hernia Heartburn pH impedance ON PPI - heartburn Procedures pH Impedance - 24 Hour Jaylene Bray, DO [address] [place] [address] [facility] [address] [place] [address] Referral ID Status Reason Start Date Expiration Date V isits Requested Visits Authorized [id number] Closed Test Only 04/06/2024 04/06/2025 1 1 Encounter Details Date Type Department Care Team (Late st Contact Info) Description 06/05/2024 10:00 AM EST Clinical [place] [address] Heart burn Social History Tobacco Use Types Packs/Day Years Used Date Smoking Tobacco: Never Assessed Sex and Gender Information Value Date Recorded Sex Assigned at Not on file Gender Identity Not on file Sexual Orientation Not on file documented as of this encounter Progress Notes * Chen Rubi, RN - 06/05/2024 10:00 AM EST The patient returns today for removal of the 24-hour Impedance catheter, which was placed 06/04/24 in the [facility]. The catheter was removed without complication and the study is uploaded 06/05/24. The patient is aware that study results will be made available to their referring provider and their PCP. All questions were answered to the patient's satisfaction. documented in this encounter Plan of Treatment Not on file documented as of this encounter Visit Diagnoses Diagnosis Heart burn Heartburn documented in this encounter Care Teams Diesel Fitter Mechanic Relationship Specialty Start Date End Date Velvet Edwards APRN [address] [place] [address] PCP - General Family Medicine 04/06/24 documented as of this encounter
--- OUTSIDE RECORDS SUMMARY | 2024-07-31 01:12 | XMS_ITS | Encounter Summary ---
Author Organization [facility] Address [address] [place] [address] Care Team Providers Care Past Due Accounts Clerk Name Role Phone Iesha Malave MD Primary Care Provider [phone] Encounter Details Date Type Department Care Team (Late st Contact Info) Description 03/31/2024 Lab Requisition [facility] Pathology & Laboratory Medicine - [address] [address] Jaylene Bray, DO [address] [place], [place] [phone] Encounter for surveillance of contraceptive pills Social History Tobacco Use Types Packs/Day Years [...] Procedure Name Priority Date/Time Associated Diagnosis Comments PAP TEST Today 03/27/2024 12:00 EDT Encounter for surveillance of contraceptive pills documented in this encounter Results * PAP TEST (03/27/2024 12:00 EDT) Specimens A. Cervix and/or Endocervix , ThinPrep Imaging System with Manual Evaluation 04/09/2024 11:46 EDT [facility] Specimen Adequacy Unsatisfactory for evaluation-Insuf ficient number of squamous epithelial cells. Specimen processed and examined but preparation compromised by lubricant or other vaginal contaminant. 04/09/2024 11:46 EDT [facility] General Categorization Unsatisfactory 04/09/2024 11:46 EDT [facility] Educational Comments Unsatisfactory - Specimen processed and examined, but unsatisfactory for evaluation of epithelial abnormality. Recommend repeat age-based screening after 2-4 months per ASCCP Guidelines which may be found at www.asccp.org. HPV testing will not be performed due to the potential for false negative results. 04/09/2024 11:46 EDT [facility] Attestation . 04/09/2024 11:46 T [facility] at 1146 Clinical History SEE BELOW 04/09/20 11:46 T [facility] Performing Lab [facility] 04/09/2024 11:46 T [facility] Scanned Images 04/09/2024 11:46 EDT [facility] Pap Test CERVIX UTERI STRUCTURE / Unknown 03/27/2024 12:00 EDT 03/31/2024 14:12 EDT us Jaylene Bray DO PATHOLOGY ORDERABLES Final Re sult [facility] [address] [place], [place] [address] documented in this encounter Visit Diagnoses Diagnosis Encounter for surveillance of contraceptive pills Surveillance of previously prescribed contraceptive pill documented in this encounter Care Teams Past Due Accounts Clerk Relationship Specialty Start Date End Date Iesha Malave MD [address] [place], [place] [address] PCP - General 05/21/13 documented as of this encounter
[2024-07-31 09:52] LABS: Abs Immature Grans 0.02 10^3/uL (0.0-0.06); Absolute Basophil Count 0.04 10^3/uL (0.0-0.2); Absolute Eosinophil Count 0.24 10^3/uL (0.0-0.7); Absolute Monocyte Count 0.33 10^3/uL (0.1-0.8); Absolute Neutrophil Count 4.52 10^3/uL (1.2-6.7); Basophils % 0.6 %; Eosinophils % 3.6 %; HCT 40.1 % (36.0-46.0); HGB 13.3 g/dL (11.2-15.7); Immature Grans % 0.3 %; Lymphocytes % 22.6 %; MCH 31.7 pg (27.0-33.0); MCHC 33.2 % (32.0-36.0); MCV 96 fL (80-95); MPV 9.1 fL (8.0-11.0); Neutrophils % 67.9 %; Platelet Count 318 10^3/uL (130-400); RDW 13.4 % (11.7-14.6); RDW-SD 47.8 fL; WBC 6.65 10^3/uL (4.4-10.8)
[2024-07-31 10:08] LABS: Hemoglobin A1C 5.4 % (<5.7)
[2024-07-31 10:31] LABS: ALT 42 U/L (14-59); AST 27 U/L (15-37); Alkaline Phosphatase 163 U/L (46-116); Anion Gap 6.4 mmol/L (3-11); BUN 14 mg/dL (7-18); Bilirubin, Total 0.71 mg/dL (0.2-1.0); CO2 27.6 mmol/L (21.0-32.0); CREATININE 1.1 mg/dL (0.55-1.02); Calcium 9.5 mg/dL (8.5-10.1); Chloride 105 mmol/L (98-107); Estimated GFR 61.98 (mL/min/1.73m2); Ferritin 42 ng/mL (8-252); Glucose 88 mg/dL (74-106); Potassium 4.3 mmol/L (3.5-5.1); Sodium 139 mmol/L (136-145); Vitamin D 25 Total 31.4 ng/mL (30-100)
[2024-07-31 19:23] LABS: HBs Antibody, Quant 66.2 mIU/mL (See Note); Hep B Surface Ab Positive (See Note); Hepatitis B Core Antibody Negative (Negative); Hepatitis B Surface Antigen Negative (Negative)
[2024-07-31 19:26] LABS: HIV-1/2 Ag & Ab Screen Negative (Negative)
== END 2024-07-31 00:57 | disposition home or self-care (01) ==
LOC: LBO 00:56
PROVIDERS: PCP Nurse Practitioner Family; Visit Provider Nurse Practitioner Family
DX: D50.9 Iron deficiency anemia, unspecified (principal); E78.5 Hyperlipidemia, unspecified; I10 Essential (primary) hypertension; Z11.4 Encounter for screening for human immunodeficiency virus [HIV]; Z11.59 Encounter for screening for other viral diseases; E55.9 Vitamin D deficiency, unspecified
CPT/HCPCS: 36415; 80053; 82306; 86704; 86706; 87340; 87389; 82728; 83036; 85025

== ENCOUNTER 2024-09-30 03:57 | Outpatient (CLI) | payer MEDICAID, SELFPAY ==
--- NOTE | 2024-09-30 07:19 | DI.MAMMO_ITS ---
Exam(s) MAMMO SCREENING EXAM: MAMMO SCREENING CLINICAL HISTORY: screening,z12.39 TECHNIQUE: Bilateral full field digital CC and MLO mammographic images were obtained with 3D tomosyn thesis and utilizing computer aided detection (CAD). COMPARISON: Available for comparison. FINDINGS: Masses/Architectural Distortion: None seen. Microcalcifications: No suspicious pleomorphic-type are seen. Skin Thickening/Nipple Retraction: None. IMPRESSION: 1. No significant interval change with no specific features of malignancy noted. 2. Unless there is more urgent need, screening mammography is recommended, as per [employer] guidelines. BI-RADS Category 1 - Negative Breast Density - Category C - Heterogeneously dense Breast density category C or D implies that the patient has dense breast tissue. Dense breast tissue is very common and is not abnormal but dense breast tissue can make it harder to find cancer on a ma mmogram. Also, dense breast tissue may increase their breast cancer risk. This information about the result of the mammogram report was provided to the patient to raise their awareness. Use this report when you speak with the patient about their risks for breast cancer, which includes their family hist ory. At that time, you may recommend for more screening tests (Ultrasound or MRI) as they might be us eful based on their risk. A negative radiographic report should not delay biopsy if a dominant or clinically suspicious mass is present. Up to ten percent of cancers are not identified on mammography. A negative report may reinforce clinical impression. Adenosis and dense breasts may obscure an underlying neoplasm. False positive reports average 6 to 10%. Patient will receive a letter notifying them of these results.
== END 2024-09-30 04:17 ==
LOC: DI 03:58
PROVIDERS: PCP Nurse Practitioner Family; Visit Provider Nurse Practitioner Family
DX: Z12.31 Encounter for screening mammogram for malignant neoplasm of breast (principal); R92.333 Mammographic heterogeneous density, bilateral breasts
CPT/HCPCS: 77063; 77067

== ENCOUNTER 2025-02-23 16:01 | Emergency (ER) | payer MEDICAID, SELFPAY ==
[2025-02-23 16:03] VITALS: BP 161/95; PULSE 88; RESP 18; TEMP 37.3; O2SAT 97
--- NOTE | 2025-02-23 18:00 | DI.RAD_ITS ---
Exam(s) XR FOOT RT COMPLETE EXAM: XR FOOT RT COMPLETE CLINICAL HISTORY: Injury Right Great toe. TECHNIQUE: 2D digital imaging was performed. COMPARISON: No exams were available for comparison FINDINGS: 3 views There is avulsion of the nail bed of the great toe. There is no evidence of fracture or dislocation. No radiopaque foreign body. Small inferior calcaneal spur is noted. IMPRESSION: Nail bed avulsion of great toe. No fractures evident. DATA REPOSITORY: RADIATION DOSE DELIVERED:
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
[2025-02-23] MEDS: Diph,Pertuss(Acell),Tet Vac/Pf 0.5 ML SYR IM (19:16)
[2025-02-23 20:44] VITALS: BP 172/70; PULSE 81; RESP 14; O2SAT 99
--- NOTE | 2025-02-24 09:44 | NUR.NOTE ---
Chart accessed to complete surgicare requisition form.Nursing Note:
== END 2025-02-23 20:59 | disposition home or self-care (01) ==
PROVIDERS: Emergency Provider Registered Nurse Emergency; PCP Nurse Practitioner Family
DX: S91.201A Unspecified open wound of right great toe with damage to nail, initial encounter (principal); I10 Essential (primary) hypertension; E78.5 Hyperlipidemia, unspecified; Z23 Encounter for immunization; Y93.11 Activity, swimming; Y92.828 Other wilderness area as the place of occurrence of the external cause
CPT/HCPCS: 11730; 90471; 90715; 99283; 73630